=== PATIENT | male | born 1980 | race Caucasian/White ===

== ENCOUNTER 2017-08-09 19:54 | Emergency (ER) | payer MEDICAID, SELFPAY ==
[2017-08-09 19:55] VITALS: BP 156/85; PULSE 92; RESP 20; TEMP 36.7; O2SAT 100; BMI 25.0
--- NOTE | 2017-08-09 20:19 | ED.DCSUM_ITS ---
- ER Visit Summary Date of Service: 08/09/17 Chief Complaint: Plugged ears and chest congestion History of Present Illness: The patient is a 37 M with ear pressure and pain left more so than right over the past 6 days. He said chest congestion and is bringing up minimal sputum with cough. He reports subjective fevers. Past history of hepatitis C. Physical Examination: Vital signs are gross unremarkable. Head neck examination reveals posterior pharynx to be normal. Left TM is dull and erythematous. Right TM is normal. Heart is regular rate and rhythm. Lung sounds are clear. Abdomen is soft nontender. Test Results: [] Emergency Department Course and Treatment: Patient be treated with a course of Augmentin to cover his ear. I will not bother with a chest x-ray as this will cover respiratory bacterial illness as well. Treatment Plan: [] Disposition: Discharge Impression: Left otitis media This note was generated with [employer] dictation software. It may contain incorrect words, spelling, and punctuation that were not noted in review of the chart prior to signing ED Disposition - Plan for ED Patient: Chief Complaint: Cold Sx Referrals: Care Physician,No Primary [Primary Care Provider] -
--- NOTE | 2017-08-09 20:19 | ED.DEP ---
ED Disposition - Plan for ED Patient: Disposition: Home or Assisted Living Chief Complaint: Cold Sx Instructions: ED Otitis Media Acute Adult Prescriptions: Amox/Clavulanate Tablet [Augmentin Tablet] 875 mg PO Q12H #20 tablet Referrals: Henna Jimenez [NON-STAFF] - As soon as possible
[2017-08-09] MEDS: Amox/Clavulanate 875 MG Tablet PO (20:27)
== END 2017-08-09 20:28 | disposition home or self-care (01) ==
LOC: ED 20:24
PROVIDERS: Emergency Provider Emergency Medicine
DX: H66.92 Otitis media, unspecified, left ear (principal); Z72.0 Tobacco use; Z86.19 Personal history of other infectious and parasitic diseases
CPT/HCPCS: 99283

== ENCOUNTER 2017-08-23 20:13 | Emergency (ER) | payer MEDICAID, SELFPAY ==
[2017-08-23 20:15] VITALS: BP 135/89; PULSE 91; RESP 15; TEMP 36.6; O2SAT 99; BMI 26.1
--- NOTE | 2017-08-23 21:10 | RAD_ITS ---
STUDY: X-RAY CHEST REASON FOR EXAM: Male, 37 years old. Trauma 2 days ago TECHNIQUE: Single PA view of the chest. COMPARISON: Prior chest study of 03/25/2015 FINDINGS: The lungs are clear and expanded. There is mild bilateral apical pleural thickening. Normal size heart. Normal mediastinum and anders. Normal visualized pulmonary arteries. Normal visualized aortic arch and descending thoracic aorta. Normal visualized thoracic spine. Normal visualized ribs, clavicles, and shoulders. There is no demonstrated abnormality of the visualized soft tissue structures of the upper abdomen. IMPRESSION: Mild bilateral apical pleural thickening. No acute cardiopulmonary disease process is seen. Electronically Signed: Sukhdeep Ragland MD at 22:00 EST , Service support , STUDY: X-RAY - UNILATERAL RIBS ( RIGHT ) REASON FOR EXAM: Male, 37 years old. Trauma 2 days ago TECHNIQUE: 4 view(s) of the ribs. COMPARISON: None. FINDINGS: Normal visualized ribs without a demonstrated fracture. The visualized lung is clear and expanded. RAD/Ribs Uni Min 3V w/PA Chest IMPRESSION: Normal x-ray examination of the ribs. Electronically Signed: Sukhdeep Ragland MD at 22:03 EST , Service support ,
--- NOTE | 2017-08-23 22:14 | ED.VISSUMM ---
- ER Visit Summary Date of Service: 08/23/17 Chief Complaint: Rib pain History of Present Illness: The patient is a 37 M who states that 2 nights ago he was leaning over the console car when he slipped came down on the console in his right lower ribs. States he has had pain since that time. No hematuria. He denies any hemoptysis. No abdominal pain. No shortness of breath. Physical Examination: afebrile vital signs are stable Patient has tenderness to palpation over the right mid axillary ribs particularly 8 through 12. The abdominal exam is benign. There is no obvious deformity ecchymosis. Test Results: Hip series is negative for fracture effusion or contusion. Emergency Department Course and Treatment: To be discharged home with supportive care. Return if worsening follow-up if not improving Impression: 1. Right rib contusion This note was generated with [employer] dictation software. It may contain incorrect words, spelling, and punctuation that were not noted in review of the chart prior to signing ED Disposition - Plan for ED Patient: Disposition: Home or Assisted Living Chief Complaint: Other, Pain/Inj Instructions: ED Contusion Rib Referrals: Care Physician,No Primary [Primary Care Provider] - Dre Og MD [STAFF PHYSICIAN] - As Needed
[2017-08-23 22:22] VITALS: BP 155/84; PULSE 86; RESP 18; O2SAT 97
== END 2017-08-23 22:22 | disposition home or self-care (01) ==
PROVIDERS: Emergency Provider Emergency Medicine
DX: S20.211A Contusion of right front wall of thorax, initial encounter (principal); W01.198A Fall on same level from slipping, tripping and stumbling with subsequent striking against other object, initial encounter; Y93.9 Activity, unspecified; Y92.89 Other specified places as the place of occurrence of the external cause; Y99.9 Unspecified external cause status; Z72.0 Tobacco use; Z86.19 Personal history of other infectious and parasitic diseases
CPT/HCPCS: 71101; 99282

== ENCOUNTER 2017-12-30 20:19 | Emergency (ER) | payer MEDICAID, SELFPAY ==
[2017-12-30 20:19] VITALS: BP 124/80; PULSE 92; RESP 14; TEMP 36.8; O2SAT 99; BMI 24.5
--- NOTE | 2017-12-30 20:48 | ED.DCSUM_ITS ---
- ER Visit Summary Date of Service: 12/30/17 Chief Complaint: Right hand redness History of Present Illness: The patient is a 37 M presents to the emergency department with redness on the dorsum of his right hand. Symptoms started about 3 days ago. He cannot recall any trauma. He states that he noticed a small area of redness that is increased in size. He denies any fevers or chills. He states when the arm hangs, he does have more pain. He denies any IV drug abuse. The redness has not increased in size much. Physical Examination: Exam is relatively unremarkable. Patient does have a 2 cm area of induration on the dorsum of the right hand over the fourth metacarpal. There is no central fluctuance. There is no streaking. There is no lymphangitis. His pulses are normal. Test Results: [] Emergency Department Course and Treatment: Patient is cellulitis on the dorsum of his hand and a very small area. There is no focal abscess. At this time, I do not feel that incision and drainage would be of benefit without any central fluctuance. The patient will be started on Bactrim and Keflex. He did retirement plan counselor him that if his symptoms are not improving over the next 24 hours she should return for reevaluation. He is comfortable with this plan of care will be discharged home. Treatment Plan: [] Disposition: Discharge Impression: 1. Right hand cellulitis This note was generated with [employer] dictation software. It may contain incorrect words, spelling, and punctuation that were not noted in review of the chart prior to signing ED Disposition - Plan for ED Patient: Chief Complaint: Cellulitis Instructions: Discharge Instructions for Cellulitis Prescriptions: Cephalexin [Keflex] 500 mg PO Q6 #40 cap Smz/Tmp Ds [Bactrim Ds] 1 tab PO BID #14 tab Referrals: Care Physician,No Primary [Primary Care Provider] -
[2017-12-30] MEDS: Smz/Tmp Ds Tablet 1 TABLET PO (20:56)
[2017-12-30] MEDS: Cephalexin 250 MG Capsule 500 MG PO (20:56)
== END 2017-12-30 20:58 | disposition home or self-care (01) ==
LOC: ED 20:57
PROVIDERS: Emergency Provider Emergency Medicine
DX: L03.113 Cellulitis of right upper limb (principal)
CPT/HCPCS: 99283

== ENCOUNTER 2018-01-25 11:49 | Emergency (ER) | payer MEDICAID, SELFPAY ==
[2018-01-25 11:50] VITALS: BP 128/71; PULSE 112; RESP 16; TEMP 36.8; O2SAT 100; BMI 23.8
--- NOTE | 2018-01-25 12:26 | RAD_ITS ---
STUDY: X-RAY - left SHOULDER REASON FOR EXAM: Male, 37 years old. 3 week history of shoulder pain. No known injury. TECHNIQUE: 4 view(s) of the shoulder. COMPARISON: None. FINDINGS: Normal glenohumeral articulation. Normal acromioclavicular joint. Normal acromion. Normal humeral head and visualized proximal humerus. The soft tissue structures are unremarkable. Normal visualized pulmonary apex. RAD/Shoulder min 2 Views IMPRESSION: Normal x-ray examination of the shoulder. Electronically Signed: Ganesh Smith MD at 13:24 EDT Tel [phone], Service support ,
--- NOTE | 2018-01-25 14:17 | ED.DCSUM_ITS ---
- ER Visit Summary Date of Service: 01/25/18 Chief Complaint: Left shoulder pain History of Present Illness: The patient is a 37 M with neck, back, and left shoulder pain that started 3 weeks ago. Patient states his left shoulder pain continues. He feels pops and cracks with movement. States his paresthesias down his left arm as well. He is left-hand dominant. There is been no recent injury. Physical Examination: Vital signs remarkable for heart rate 112, otherwise unremarkable. Patient sitting upright in bed no acute distress. Head neck examination was no midline cervical tenderness. He does have tenderness in the left cervical paraspinals with palpable spasm. Heart is regular rate and rhythm. Lung sounds are clear. Abdomen is soft nontender. Left upper extremity examination was mild tenderness around the left shoulder. There is no deformity. He has full range of motion. Strong distal pulses are noted with good strength and sensation. Test Results: Left shoulder x-rays are obtained and unremarkable. Emergency Department Course and Treatment: Patient will continue his anti- inflammatories at home. He has been taking Flexeril, but states he has been on it for quite some time and is not sure that it is working. He will be given a few tabs of Valium to use as a muscle relaxer instead. Treatment Plan: [] Disposition: Discharge Impression: Cervical radiculopathy This note was generated with [employer] dictation software. It may contain incorrect words, spelling, and punctuation that were not noted in review of the chart prior to signing ED Disposition - Plan for ED Patient: Chief Complaint: Upper Extremity Injury Referrals: Care Physician,No Primary [Primary Care Provider] -
--- NOTE | 2018-01-25 14:17 | ED.DEP ---
ED Disposition - Plan for ED Patient: Disposition: Home or Assisted Living Chief Complaint: Upper Extremity Injury Instructions: ED Cervical Radiculopathy Prescriptions: Diazepam [Valium] 5 mg PO Q8 PRN #10 tablet PRN Reason: Muscle Spasm Referrals: Joni Johnson DO [STAFF PHYSICIAN] - As Needed
[2018-01-25 14:24] VITALS: BP 113/71; PULSE 81
== END 2018-01-25 14:26 | disposition home or self-care (01) ==
PROVIDERS: Emergency Provider Emergency Medicine
DX: M54.12 Radiculopathy, cervical region (principal); Z86.14 Personal history of Methicillin resistant Staphylococcus aureus infection; Z86.19 Personal history of other infectious and parasitic diseases; Z72.0 Tobacco use
CPT/HCPCS: 73030; 99282

== ENCOUNTER 2018-02-12 18:42 | Emergency (ER) | payer MEDICAID, SELFPAY ==
[2018-02-12 18:43] VITALS: BP 129/93; PULSE 112; RESP 18; TEMP 37.2; O2SAT 99; BMI 23.6
--- NOTE | 2018-02-12 19:41 | ED.VISSUMM ---
- ER Visit Summary Date of Service: 02/12/18 Chief Complaint: Abdominal pain History of Present Illness: The patient is a 37 M presenting with abdominal pain x 1 week. He has had nausea and vomiting. He denies diarrhea or constipation. Denies fever. He has pain in the right upper quadrant. History of hep C, pancreatitis. History of previous appendectomy and cholecystectomy. He does not currently have a primary care physician. 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 He denies alcohol use. Physical Examination: Vitals are stable. Patient is afebrile. Alert no acute distress. HEENT exam is unremarkable. Neck is supple. Lungs are clear and equal bilaterally. Heart is regular rate and rhythm. Abdomen is soft right upper quadrant tenderness with no rebound or guarding Extremities are unremarkable. Skin is warm and dry. Remainder of exam is unremarkable. Emergency Department Course and Treatment: Patient is given IV fluids, morphine, Zofran. CBC shows white count of 12.5. Chemistries unremarkable. Lipase 58. Urinalysis unremarkable. Patient refused CT abdomen pelvis. He is feeling improved on reevaluation. He will follow-up with his GI physician. He is given a prescription for Bentyl and Zofran. Advised return to ED for any worsening complaints. Disposition: Discharge home Impression: Abdominal pain This note was generated with [employer] dictation software. It may contain incorrect words, spelling, and punctuation that were not noted in review of the chart prior to signing ED Disposition - Plan for ED Patient: Chief Complaint: Abd Pain Instructions: ED Abdominal Pain Unkn Cause Prescriptions: Ondansetron [Zofran Odt] 4 mg PO Q8H PRN PRN #10 tablet PRN Reason: Nausea Dicyclomine HCl [Bentyl] 20 mg PO TIDAC #20 capsule Referrals: Care Physician,No Primary [Primary Care Provider] -
[2018-02-12 20:12] LABS: AST(SGOT) 13 U/L (15-37); Alanine Aminotransfer ALT/SGPT 24 U/L (16-61); Albumin, Serum 3.8 g/dL (3.2-5.0); Alkaline Phosphatase 98 U/L (45-117); Anion Gap 6 (5-15); BUN 10 mg/dL (7-18); BUN/Creat Ratio 9.4 RATIO (10-20); Bilirubin, Direct 0.11 mg/dL (0.00-0.30); Calcium,Total 8.8 mg/dL (8.5-10.1); Chloride 105 mmol/L (98-107); Creatinine, Serum 1.06 mg/dL (0.70-1.30); EST Glomerular Filtration Rate 83 mL/min (>60); Est Glom Filt Rate - Afr Amer 101 mL/min (>60); Estimated Creatinine Clearance 98.52 ml/min; Globulin 4.7 g/dL (2.2-4.2); Glucose 87 mg/dL (74-106); Lipase 58 U/L (73-393); Potassium 3.6 mmol/L (3.5-5.1); Protein, Total 8.5 g/dL (6.4-8.2); Sodium Level 139 mmol/L (136-145)
[2018-02-12 20:15] LABS: Absolute Lymphocyte Count 4.73 X10^3/ul (0.83-4.51); Absolute Neutrophil Count 6.5 X10^3/uL (2.0-7.7); Basophil# 0.03 X10^3/uL; Basophil% 0.2 % (0-1); Eosinophil# 0.29 X10^3/uL; Eosinophils% 2.3 % (0-5); Hematocrit 51.8 % (40-54); Hemoglobin 17.8 g/dl (13.0-16.5); Lymphocyte # 4.73 X10^3/ul (4.0); Lymphocyte % 37.8 % (19-41); Mean Corp Hgb Conc 34.4 g/gl (32-36); Mean Corpuscular Hgb 30.5 pg (27.0-32.0); Mean Corpuscular Volume 88.7 fL (80-94); Mean Platelet Vol. 9.8 fl (6.2-12.0); Monocyte# 0.98 X10^3/uL; Monocyte% 7.8 % (0-10); Neutrophil # 6.45 X10^3/uL (2.7-7.7); Neutrophil % 51.6 % (47-70); Platelet Count 201 K/mm3 (150-450); RBC Distribution Width CV 13.9 % (11.6-14.6); RBC Distribution Width SD 45.4 fl (35.1-43.9); Red Blood Count 5.84 M/mm3 (4.6-6.2); White Blood Count 12.5 K/mm3 (4.4-11.0)
[2018-02-12 20:17] LABS: POSITIVE COUNT NO; POSITIVE DIFFERENTIAL NO; POSITIVE MORPHOLOGY NO
[2018-02-12] MEDS: Ondansetron 4 MG/2 ML Vial IV (20:35)
[2018-02-12] MEDS: Morphine 4 MG/ML Syringe IV (20:35)
[2018-02-12] MEDS: 0.9% Normal Saline 1,000 ML 1000 ML IV (20:35)
[2018-02-12 20:37] LABS: Bacteria 0 SEEN /hpf (None Seen); Mucous, Urine 0 SEEN /hpf (<or=2+); Red Blood Cells-Urine 0 SEEN /hpf (0-5)
[2018-02-12 21:16] LABS: Color, Urine Yellow (Yellow); Glucose, Dipstick Normal (Normal); Ketone-Dipstick Negative (Negative); Leukocyte Esterase-Dipstick 100 /ul (Negative); Nitrite-Dipstick Negative (Negative); Occult Blood-Urine Negative /ul (Negative); Specific Gravity, Urine 1.015 (1.002-1.030); Urine Bilirubin Dipstick Negative (Negative); Urine Clarity Sl. Cloudy (Clear); Urine Urobilinogen Normal (Normal); Urine pH 6.5 (5.0 - 8.0)
[2018-02-12 21:28] LABS: Protein-Dipstick 15 mg/dl (Negative)
[2018-02-12 21:53] LABS: Squamous Epithelial Cells - UA 0-5 SEEN /hpf (0-5)
[2018-02-12 21:56] LABS: White Blood Cells 0-5 SEEN /hpf (0-5)
--- NOTE | 2018-02-12 22:08 | ED.DEP ---
ED Disposition - Plan for ED Patient: Chief Complaint: Abd Pain Instructions: ED Abdominal Pain Unkn Cause Prescriptions: Ondansetron [Zofran Odt] 4 mg PO Q8H PRN PRN #10 tablet PRN Reason: Nausea Dicyclomine HCl [Bentyl] 20 mg PO TIDAC #20 capsule Referrals: Care Physician,No Primary [Primary Care Provider] -
[2018-02-12 22:24] VITALS: RESP 16
== END 2018-02-12 22:25 | disposition home or self-care (01) ==
PROVIDERS: Emergency Provider Emergency Medicine
DX: R11.2 Nausea with vomiting, unspecified (principal); R10.11 Right upper quadrant pain; Z72.0 Tobacco use; Z86.19 Personal history of other infectious and parasitic diseases; Z90.49 Acquired absence of other specified parts of digestive tract
CPT/HCPCS: 80048; 80076; 81001; 83690; 85025; 99283; J7030; J2405

== ENCOUNTER 2018-04-30 14:13 | Emergency (ER) | payer MEDICAID, SELFPAY ==
[2018-04-30 14:14] VITALS: BP 162/106; PULSE 110; RESP 18; TEMP 36.4; O2SAT 100; BMI 24.3
--- NOTE | 2018-04-30 14:17 | RAD_ITS ---
STUDY: X-RAY CHEST REASON FOR EXAM: Male, 38 years old. Anterior chest pain. Midsternal swelling for 2 weeks. TECHNIQUE: PA and lateral views of the chest. COMPARISON: Comparison is made with prior examination dated March 25, 2015. FINDINGS: The lungs are clear and expanded. There is no demonstrated pleural abnormality. Normal size heart. Normal mediastinum and anders. Normal visualized pulmonary arteries. Normal visualized aortic arch and descending thoracic aorta. Normal visualized thoracic spine. Normal visualized ribs, clavicles, and shoulders. There is no demonstrated abnormality of the visualized soft tissue structures of the upper abdomen. RAD/Chest PA and Lateral IMPRESSION: Normal x-ray examination of the chest. Electronically Signed: Ganesh Smith MD at 14:54 EST Tel [phone], Service support ,
[2018-04-30 15:22] VITALS: BP 161/90; PULSE 107; RESP 20; O2SAT 99
--- NOTE | 2018-04-30 16:05 | ED.DCSUM_ITS ---
- ER Visit Summary Date of Service: 04/30/18 Chief Complaint: Swollen area on chest History of Present Illness: The patient is a 38 M who noted pain to his lower sternum area and around his right ribs were approximately 4 weeks ago. He initially does have pain when he laid on his right side. The area has become more sore over the past 4 weeks and he recently noted some swelling along the inferior sternum. The area is not red or warm. He has not noted fever or chills. Patient does have a history of MRSA and is exposed to someone who is currently being treated for MRSA. Physical Examination: Vital signs in triage include a blood pressure of 161/90 and a heart rate of 107. The time of my examination his blood pressure is 126/88. Patient sitting upright in bed no acute distress. Head and neck examination is unremarkable. Heart is regular rate and rhythm. Lung sounds are clear. He has reproducible tenderness along the inferior sternum with some mild edema noted. There is no redness or warmth. There is no actual fluctuance. Abdomen is soft nontender. Test Results: [] Emergency Department Course and Treatment: I did do a bedside ultrasound exam does not show a focal fluid collection. I am suspicious for developing abscess and patient be treated with Bactrim and Keflex. He was advised that if the area enlarges or he has overlying skin changes he may require I&D and he is to return if that occurs. He understands. Treatment Plan: [] Disposition: Discharge Impression: Cutaneous abscess Chest wall This note was generated with [employer] dictation software. It may contain incorrect words, spelling, and punctuation that were not noted in review of the chart prior to signing ED Disposition - Plan for ED Patient: Chief Complaint: Chest Other Referrals: Care Physician,No Primary [Primary Care Provider] -
--- NOTE | 2018-04-30 16:05 | ED.DEP ---
ED Disposition - Plan for ED Patient: Disposition: Home or Assisted Living Chief Complaint: Chest Other Instructions: ED Staph Infec Abx Tx Only Prescriptions: Cephalexin [Keflex] 500 mg PO Q6 #40 capsule Smz/Tmp Ds [Bactrim Ds] 1 tablet PO BID #20 tablet Referrals: Margarito Arora MD [NON-STAFF] - 1 Week
[2018-04-30] MEDS: Cephalexin 250 MG Capsule 500 MG PO (16:16)
[2018-04-30] MEDS: Smz/Tmp Ds Tablet 1 TABLET PO (16:16)
[2018-04-30 16:17] VITALS: BP 126/88; PULSE 97; RESP 18; O2SAT 98
== END 2018-04-30 16:18 | disposition home or self-care (01) ==
LOC: ED 16:10
PROVIDERS: Emergency Provider Emergency Medicine
DX: L02.213 Cutaneous abscess of chest wall (principal); Z86.14 Personal history of Methicillin resistant Staphylococcus aureus infection; Z72.0 Tobacco use; Z86.19 Personal history of other infectious and parasitic diseases
CPT/HCPCS: 71046; 99283

== ENCOUNTER → 2018-07-17 10:01 | Outpatient (CLI) | payer MEDICAID, SELFPAY ==
[2018-07-17 10:30] LABS: Amphetamine Urine VISTA NEGATIVE (<1000 ng/mL); Barbiturate Urine VISTA NEGATIVE (< 200 ng/mL); Benzodiazepine Urine VISTA NEGATIVE (< 200 ng/mL); Cocaine Urine VISTA NEGATIVE (< 300 ng/mL); Ecstacy Urine VISTA NEGATIVE (< 500 ng/mL); Methadone Urine VISTA NEGATIVE (< 300 ng/mL); PCP Urine VISTA NEGATIVE (< 25 ng/mL); THC Urine VISTA NEGATIVE (< 50 ng/mL); Vista UDS pH Range 5
--- OUTSIDE RECORDS SUMMARY | 2018-09-18 12:29 | XMS RPT_ITS ---
:1980 Author Organization OHIP Support Name Relationship Address Phone CAMMY RODRIGUEZ Unavailable Unavailable + HEIDE MARIE Unavailable [address] + [place] [address] UE Unavailable Unavailable Unavailable HEIDE MARIE Unavailable [address] + [place] [address] UE Unavailable Unavailable Unavailable NOT GIVEN Unavailable Unavailable Unavailable HEIDE MARIE Unavailable [address] + [place], [place] [phone] PEPE PISENGA Unavailable [address] + [place] [address] HEIDE MARIE Unavailable [address] + [place] [address] [employer] Unavailable [address] + [place] [address] HEIDE MARIE Unavailable [address] + [place] [address] [employer] Unavailable [address] + [place] [address] HEIDE MARIE Unavailable [address] + [place] [address] CYNTHIA HEIDE Unavailable [address] + [place] [address] [employer] Unavailable [address] + [place] [address] CYNTHIA, HEIDE Unavailable [address] + [place] [address] [employer] Unavailable [address] + [place] [address] HEIDE MARIE Unavailable [address] + [place] [address] HEIDE MARIE Unavailable [address] + [place] [address] NOT GIVEN Unavailable Unavailable Unavailable HEIDE MARIE Unavailable [address] + [place], [place] [id number] [employer] Unavailable [address] + [place] [address] HEIDE MARIE Unavailable [address] + [place] [address] [employer] Unavailable [address] + [place] [address] DOE MARIELEY Unavailable [address] + [place] [address] DOE MARIELEY Unavailable [address] + [place] [address] [employer] Unavailable [address] + [place] [address] HEIDE MARIE Unavailable [address] + [place] [address] [employer] Unavailable [address] + [place] [address] DOE MARIELEY Unavailable [address] + [place] [address] CYNTHIA, HEIDE Unavailable [address] + [place] [address] Care Team Providers Name Role Phone TORITO CHA V Admitting Unavailable STEFF BINGHAM Admitting Unavailable STEFF BINGHAM Attending Unavailable TORITO CHA Admitting Unavailable TORITO CHA Attending Unavailable TORITO CHA Admitting Unavailable TORITO CHA Attending Unavailable TORITO GÓMEZ Consulting Unavailable TORITO CHA Admitting Unavailable TORITO CHA Attending Unavailable TORITO CHA Admitting Unavailable TORITO CHA Attending Unavailable JOSE CRAVEN DO Admitting Unavailable JOSE CRAVEN DO Attending Unavailable JOSE CRAVEN DO Primary Care Unavailable NO, DOCTOR ON Consulting Unavailable NO, DOCTOR ON Referring Unavailable VENESSA, DR MARY Rogers Admitting Unavailable VENESSA, DR MARY Rogers Attending Unavailable VENESSA, DR MARY Rogers Primary Care Unavailable NO, DOCTOR ON Consulting Unavailable TAEGE, LONI Referring Unavailable DEEPA, LONI Referring Unavailable JESICA SANDERS Attending Unavailable TORITO KNUTSON Primary Care Unavailable CONNIE LUKE Attending Unavailable TORITO KNUTSON Primary Care Unavailable CONNIE LUKE Attending Unavailable TORITO KNUTSON Primary Care Unavailable TORITO KNUTSON Primary Care Unavailable REGAN SETH Attending Unavailable Blossom Johnson Attending Unavailable Blossom Johnson Referring Unavailable ABRAHAN DAVIS Primary Care Unavailable Primay Care Physicia, No Primary Care Unavailable Bhargavi Morgan Attending Unavailable Primay Care Physicia, No Primary Care Unavailable Bhargavi Morgan Attending Unavailable Primay Care Physicia, No Primary Care Unavailable Bhargavi Morgan Attending Unavailable Primay Care Physicia, No Primary Care Unavailable Joni David Attending Unavailable Primay Care Physicia, No Primary Care Unavailable Rush Elizalde Attending Unavailable Primay Care Physicia, No Primary Care Unavailable Elana Celaya Attending Unavailable PROBLEMS PROBLEMS DATE TYPE CONDITION / CODE ATTENDING STATUS SOURCE 07/17/2018 Unknown F11.20 - Opioid Blossom Johnson Active [place] dependence, Community uncomplicated / Hospital F11.20(ICD-10) Repository 01/06/2018 Working PAIN IN RIGHT HIP / VAISHNAV, Active [place] diagnosis M25.551(ICD-10) [facility] Repository 10/11/2016 Active Nonspecific reaction NA Active [place] to tuberculin skin Clinic Main test without active [place] tuberculosis / Repository R76.11(ICD-10) 10/11/2016 Active Chronic viral NA Active [place] hepatitis C / Clinic Main B18.2(ICD-10) [place] Repository 09/23/2017 Active Other specified NA Active [place] effects of external Clinic Main causes, initial [place] encounter / Repository T75.89XA(ICD-10) 09/23/2017 Active Contact with and NA Active [place] (suspected) exposure Clinic Main to unspecified [place] communicable disease Repository / Z20.9(ICD-10) 01/06/2018 Working PLEURODYNIA / VAISHNAV, Active [place] diagnosis R07.81(ICD-10) [facility] Hospital Repository 01/06/2018 Working CONTUSION OF RIGHT VAISHNAV, Active [place] diagnosis FRONT WALL OF [facility] THORAX, INITIAL Hospital ENCOUNTER / Repository S20.211A(ICD-10) 01/06/2018 Working CONTUSION OF VAISHNAV, Active [place] diagnosis ABDOMINAL WALL, [facility] INITIAL ENCOUNTER / Hospital S30.1XXA(ICD-10) Repository 01/06/2018 Working ALLERGY STATUS TO VAISHNAV, Active [place] diagnosis UNSP DRUG/MEDS/BIOL [facility] SUBST STATUS / Hospital Z88.9(ICD-10) Repository 01/06/2018 Working EXPOSURE TO OTHER VAISHNAV, Active [place] diagnosis SPECIFIED FACTORS, [facility] INITIAL ENCOUNTER / Hospital X58.XXXA(ICD-10) Repository 01/06/2018 Working ACTIVITY, OTHER VAISHNAV, Active [place] diagnosis SPECIFIED / [facility] Y93.89(ICD-10) Hospital Repository 01/06/2018 Working OTH PLACES THE VAISHNAV, Active [place] diagnosis PLACE OF OCCURRENCE [facility] OF THE EXTERNAL Hospital CAUSE / Repository Y92.89(ICD-10) 01/06/2018 Working OTHER EXTERNAL CAUSE VAISHNAV, Active [place] diagnosis STATUS / [facility] Y99.8(ICD-10) Hospital Repository 01/10/2018 Unknown R09.89 - Other Morgan, Active [place] specified symptoms Bhargavi Community and signs involving Hospital the circulatory and Repository respiratory systems / R09.89(ICD-10) 01/16/2018 Working OTALGIA, BILATERAL / SANDERS, Active [place] diagnosis H92.03(ICD-10) [facility] Repository 01/16/2018 Working UNSPECIFIED TOMMY, Active [place] diagnosis NONSUPPURATIVE [facility] OTITIS MEDIA, Hospital BILATERAL / Repository H65.93(ICD-10) 01/16/2018 Working ACUTE SINUSITIS, SANDERS, Active [place] diagnosis UNSPECIFIED / [facility] J01.90(ICD-10) Hospital Repository 01/16/2018 Working ANXIETY DISORDER, SANDERS, Active [place] diagnosis UNSPECIFIED / [facility] F41.9(ICD-10) Hospital Repository 01/16/2018 Working MAJOR DEPRESSIVE SANDERS, Active [place] diagnosis DISORDER, SINGLE [facility] EPISODE, UNSPECIFIED Hospital / F32.9(ICD-10) Repository 01/16/2018 Working NICOTINE DEPENDENCE, SANDERS, Active [place] diagnosis CIGARETTES, [facility] UNCOMPLICATED / Hospital F17.210(ICD-10) Repository 01/16/2018 Working OTHER SPECIFIED SANDERS, Active [place] diagnosis POSTPROCEDURAL [facility] / Hospital Z98.890(ICD-10) Repository 01/16/2018 Working ACQUIRED ABSENCE OF SANDERS, Active [place] diagnosis OTHER SPECIFIED [facility] PARTS OF DIGESTIVE Hospital TRACT / Repository Z90.49(ICD-10) 01/16/2018 Working OTHER NONMEDICINAL SANDERS, Active [place] diagnosis SUBSTANCE ALLERGY [facility] STATUS / Hospital Z91.048(ICD-10) Repository 01/16/2018 Working ALLERGY STATUS TO SANDERS, Active [place] diagnosis ANALGESIC AGENT [facility] / Hospital Z88.6(ICD-10) Repository 01/16/2018 Working ALLERGY STATUS TO SANDERS, Active [place] diagnosis NARCOTIC AGENT [facility] / Hospital Z88.5(ICD-10) Repository 01/16/2018 Working ALLERGY STATUS TO SANDERS, Active [place] diagnosis OTH DRUG/MEDS/BIOL [facility] STATUS / Hospital Z88.8(ICD-10) Repository PROCEDURES PROCEDURES No Procedure Records FoundRESULTS RESULTS URINE DRUG SCREEN Collected: 07/17/2018 Status: F Source: [place] (VISTA) 10:10 AM [facility] REPOSITORY Order Comment: List of Drugs Taken or Suspected? UNK TYPE CODE TESTS RESULT OUT OF RANGE REFERENCE UNITS LAB L505.0075 TO BE Normal CONFIRMED Result Comment: CONFIRMATORY TESTING FOR ALL POSITIVE URINE DRUG SCREEN RESULTS WILL ONLY BE SENT OUT UPON PHYSICIAN ORDER. VISTA Urine Drug Screen methods provide only preliminary analytical test results. A more specific alternate chemical method must be used in order to obtain a confirmed analytical result. Gas chromatography/mass spectrometery (GC/MS) is the preferred confirmatory method. Clinical consideration and professional judgement should be applied to any drug of abuse test result, particularly when preliminary positive results are used. URINE TCA TESTING MUST BE ORDERED SEPARATELY. USE TEST MNEMONIC: [facility] LAB L505.5005 VISTA UDS PH 5 Normal LAB L505.5015 <1000 ng/mL AMPHETAMINES Normal NEGATIVE LAB L505.5025 < 200 ng/mL BARBITIURATES Normal NEGATIVE LAB L505.5035 < 200 ng/mL BENZODIAZIPINE Normal NEGATIVE LAB L505.5045 < 300 ng/mL COCAINE Normal NEGATIVE LAB L505.5055 < 500 ng/mL ECSTACY Normal NEGATIVE LAB L505.5065 < 300 ng/mL METHADONE Normal NEGATIVE LAB L505.5075 < 300 ng/mL OPIATES Normal NEGATIVE LAB L505.5085 < 25 ng/mL PCP Normal NEGATIVE LAB L505.5095 < 50 ng/mL THC Normal NEGATIVE Performed By: #### L505.5000 #### [facility] [place], [address] [facility] Observed: 05/23/2018 Status: COMPLETED Source: [place] 12:00 AM [facility] REPOSITORY Patient Outreach (INFDMN) MARY LOU ELIZONDO JR. ([id number]) 1980 M Date Time Provider Department 05/23/18 LAURA WHITAKER (YESY SPENCE)INFDMN During your visit today, we recorded the following information about you: Allergies As of Date: 05/23/2018 Noted Allergy Reaction ADHESIVE TAPE (ROSINS) 04/11/2008 2 - Rash AMANTADINE 03/02/2005 5 - Intolerance Comments: FATIGUE AND G.I. UPSET CODEINE 11/28/2014 9 - Itching TORADOL (KETOROLAC TROMETHAMINE) 07/14/2014 2 - Rash ULTRAM (TRAMADOL) 07/14/2014 2 - Rash Date Reviewed: 05/08/2017 Reviewed by: Iraida Paige Ma - Fully Assessed Reason for Visit: Future Appointment [256] Prescriptions as of 05/23/2018 Sig: TRUVADA 200 MG-300 MG TABLET TAKE 1 TABLET BY MOUTH EVERY * OXYCODONE 5 MG TABLET Take 5 mg by mouth. 1 -2 tabs* IBUPROFEN 200 MG TABLET Take 200 mg by mouth every 6 * ISONIAZID 300 MG TABLET Take 1 tablet by mouth once d* Problem List As Of Date 05/23/2018 Noted Resolved ADJUSTMENT DISORDER WITH DEPRESSED MOOD [F43.21]INVALID FOR* ANXIETY STATE NOS [F41.1] INVALID FOR* OTHER LUNG DISEASE NEC [J98.4] INVALID FOR* PNEUMONIA, ORGANISM NOS [J18.9] INVALID FOR* FX NAVICULAR, WRIST-CLOSE [S62.009A] INVALID FOR* LUMBAGO [M54.5] INVALID FOR* CONVULSIONS NEC [R56.9] INVALID FOR* ALCOHOL ABUSE-UNSPEC [F10.10] INVALID FOR* TOBACCO USE DISORDER [F17.200] INVALID FOR* MGRN WO AURA WO NTRC MGR [G43.009] INVALID FOR* Calculus of kidney [N20.0] INVALID FOR* Right flank pain [R10.9] INVALID FOR* Left flank pain [R10.9] INVALID FOR* Lumbar disc disorder [M51.9] INVALID FOR* Chronic hepatitis C without hepatic coma (HCC) *INVALID FOR* 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] INVALID FOR* Encounter Status:Closed by LAURA ARREGUIN on 05/23/18 EMERGENCY DEPARTMENT Observed: 05/01/2018 Status: F Source: [place] SUMMARY 2:17 AM [facility] REPOSITORY [facility] Medical Records Department [address] [place] [address] Emergency Department Summary 04/30/18 1600 MR#: [id number] Acct: [id number] Name: MARY LOU ELIZONDO Rep #: [id number] : 1980 38 From: Bhargavi Morgan MD PCP: Care Physician, No Primary Status: DEP ER - ER Visit Summary Date of Service: 04/30/18 Chief Complaint: Swollen area on chest History of Present Illness: The patient is a 38 M who noted pain to his lower sternum area and around his right ribs were approximately 4 weeks ago. He initially does have pain when he laid on his right side. The area has become more sore over the past 4 weeks and he recently noted some swelling along the inferior sternum. The area is not red or warm. He has not noted fever or chills. Patient does have a history of MRSA and is exposed to someone who is currently being treated for MRSA. Physical Examination: Vital signs in triage include a blood pressure of 161/90 and a heart rate of 107. The time of my examination his blood pressure is 126/88. Patient sitting upright in bed no acute distress. Head and neck examination is unremarkable. Heart is regular rate and rhythm. Lung sounds are clear. He has reproducible tenderness along the inferior sternum with some mild edema noted. There is no redness or warmth. There is no actual fluctuance. Abdomen is soft nontender. Test Results: [] Emergency Department Course and Treatment: I did do a bedside ultrasound exam does not show a focal fluid collection. I am suspicious for developing abscess and patient be treated with Bactrim and Keflex. He was advised that if the area enlarges or he has overlying skin changes he may require I AND D and he is to return if that occurs. He understands. Treatment Plan: [] Disposition: Discharge Impression: Cutaneous abscess Chest wall This note was generated with Examify dictation software. It may contain incorrect words, spelling, and punctuation that were not noted in review of the chart prior to signing ED Disposition - Plan for ED Patient: Chief Complaint: Chest Other Referrals: Care Physician,No Primary [Primary Care Provider] - What to do if you have Problems For any increased pain, shortness of breath, bleeding, nausea or vomiting, chest pain, or any unexpected problems, contact your Primary Care Provider. Call [facility] ([phone]) or report to the closest Emergency Room. Call 911 if necessary. 05/01/18 0217 <Electronically signed by Bhargavi Morgan MD> Date Bhargavi Morgan MD Cosigner Signature (If Indicated): Date CC: No Primary Care Physician DISCHARGE INSTRUCTION Observed: 04/30/2018 Status: F Source: [place] 4:07 PM [facility] REPOSITORY [facility] Medical Records Department [address] [place] [address] Discharge Instruction 04/30/185 MR#: [id number] Acct: [id number] Name: MARY LOU ELIZONDO Rep #: [id number] : 1980 38 From: Bhargavi Morgan MD PCP: Care Physician, No Primary Status: PRE ER ED Disposition - Plan for ED Patient: Disposition: Home or Assisted Living Chief Complaint: Chest Other Instructions: ED Staph Infec Abx Tx Only Prescriptions: Cephalexin [Keflex] 500 mg PO Q6 #40 capsule Smz/Tmp Ds [Bactrim Ds] 1 tablet PO BID #20 tablet Referrals: Margarito Arora MD [NON-STAFF] - 1 Week What to do if you have Problems For any increased pain, shortness of breath, bleeding, nausea or vomiting, chest pain, or any unexpected problems, contact your Primary Care Provider. Call [facility] ([phone]) or report to the closest Emergency Room. Call 911 if necessary. 04/30/181606 <Electronically signed by Bhargavi Morgan MD> Date Bhargavi Morgan MD Cosigner Signature (If Indicated): Date CC: No Primary Care Physician CHEST PA AND LATERAL Observed: 04/30/2018 Status: F Source: [place] 2:18 PM [facility] REPOSITORY [facility] Imaging Services [address] [place] [address] Chest PA and Lateral MR#: [id number] Acct: [id number] Name: MARY LOU ELIZONDO Rep #: [id number] : 1980 M 38 From: Ganesh Smith MD PCP: Care Physician, No Primary Status: PRE ER Study: Chest PA and Lateral Date of Exam: 04/30/18 Exam# [id number] Ordering Dr: Provider,Ed P. STUDY: X-RAY CHEST REASON FOR EXAM: Male, 38 years old. Anterior chest pain. Midsternal swelling for 2 weeks. TECHNIQUE: PA and lateral views of the chest. COMPARISON: Comparison is made with prior examination dated March 25, 2015. FINDINGS: The lungs are clear and expanded. There is no demonstrated pleural abnormality. Normal size heart. Normal mediastinum and anders. Normal visualized pulmonary arteries. Normal visualized aortic arch and descending thoracic aorta. Normal visualized thoracic spine. Normal visualized ribs, clavicles, and shoulders. There is no demonstrated abnormality of the visualized soft tissue structures of the upper abdomen. RAD/Chest PA and Lateral IMPRESSION: Normal x-ray examination of the chest. Electronically Signed: Ganesh Smith MD at 14:54 EST Tel [phone], Service support , CC: No Primary Care Physician; ED PHYSICIAN PROVIDER Pallet Assembler: Signed CHEST 2 VIEWS Observed: 04/27/2018 Status: F [facility] [place] [address] Patient: MARY LOU ELIZONDO JR Phone#: : 1980 Age: 38 Gender: M Pt. Type: ER Account: [id number] Location: 2 Ordering: MARY CLIFFORD Exam Date: 04/27/2018/13:44 Family Phys: NO DOCTOR Charge Code: [id number] Physician: [place] Order #: [id number] DLP Dose#: PROCEDURE: X-RAY CHEST 2 VIEWS COMPARISON: [facility], XR, CHEST PA/LAT, 02/20/2016, 15:54. INDICATIONS: Chest pain FINDINGS: LUNGS: Normal. No significant pulmonary parenchymal abnormalities. VASCULATURE: Normal. Unremarkable pulmonary vasculature. CARDIAC: Normal. No cardiac silhouette abnormality or cardiomegaly. MEDIASTINUM: Normal. No visible mass or adenopathy. PLEURA: Normal. No effusion or pleural thickening. BONES: Normal. No fracture or visible bony lesion. OTHER: Negative. CONCLUSION: No acute disease. No significant change has occurred. Dictated by: Ginger Lara MD on 04/27/2018 at 14:30 Approved by: Ginger Lara MD on 04/27/2018 at 14:30 EMERGENCY REPORT Observed: 04/27/2018 Status: F Source: [facility] 1:21 PM [facility] EMERGENCY ROOM REPORT NAME ACCOUNT SEX AGE ADMIT DISCHARGE PT MED. RECORD# NUMBER DATE DATE TYPE MIKHAIL, [id number] M 38 04/27/18 3 MARY LOU Mar[place] [id number] ROOM: ER DATE OF : 1980 DICTATING PHYSICIAN: Mary Clifford HISTORY OF PRESENT ILLNESS: The patient came in. He complained of pain to his right lower chest area, which radiates around to his back. He denies any shortness of breath. He has had it for 3 weeks. It is just giving him pain. He was concerned and presents to the emergency department. PAST MEDICAL HISTORY: He has had wrist surgery. He has history of colitis, pancreatitis. MEDICATIONS: He is on HIV prophylaxis he states. REVIEW OF SYSTEMS: Eight systems were reviewed and are negative except as mentioned above. He is afebrile. Blood pressure 133/94, pulse 96, respirations 16. Head is normocephalic and atraumatic. Pupils are equally round and reactive to light. Extraocular muscles are intact. Nares are patent. Throat has adequate moisture. Uvula is midline. Neck is supple without petechial rash. Heart without murmur, S1, S2. No S3 or S4 appreciated. Lungs are clear to auscultation bilaterally. No rales, rhonchi or retractions. Abdomen is soft, nontender and nondistended. Skin is warm and dry. The patient does not have tenderness to palpation. PHYSICAL EXAMINATION: Chest x-ray was unremarkable. EKG showed rate of 92, normal axis. No ST elevation or depression. DIAGNOSIS: Chest pain, cause not clear. Not cardiac. PLAN/DISPOSITION: He will be discharged in stable condition. He should follow up with Kerline Cortés in 3 to 4 days and return if any problems or concerns. We will write him for Motrin for pain. Dictated By: Mary Clifford DO 04/27/18 14:45 JOB #: [id number] Transcribed By: jae 04/27/18 15:39 Electronically signed by: HANNAH Clifford D.O. Page 1 of 2 MARY LOU ELIZONDO Emergency Room Report JR L 05/10/18 08:54 Page 2 of 2 MARY LOU ELIZONDO Emergency Room Report L URINALYSIS Collected: 04/03/2018 Status: F Source: [place] 8:58 AM [facility] REPOSITORY TYPE CODE TESTS RESULT OUT OF RANGE REFERENCE UNITS LAB UCOL Yellow Color Yellow LAB [facility] Clear Clarity Clear LAB UGLUC Negative mg/dL Glucose, Urine Negative LAB UBIL Negative Bilirubin, Urine Negative LAB UKET Negative Ketones, Urine Negative LAB USPG 1.005-1.030 High Specific [place], Ur 1.034 LAB UHGB Negative Hemoglobin/Blood, Negative Ur LAB UPH 4.5-8.0 pH 5.0 LAB UPROT Negative mg/dL Protein, Abnormal Urine 30 Alert LAB UUROB Normal Urobilinogen Normal LAB UNITR Negative Nitrites Negative LAB ULKEST Negative Leukest Negative LAB UCOM Comments SEE COMMENT Result Comment: Microscopic Examination Performed LAB UWBC 0-5 /HPF WBC 0-5 LAB URBC 0-3 /HPF RBC 0-3 LAB UMCOM Urine SEE Derek Comment COMMENT Result Comment: Interpret results with caution. Urine preservative tube not filled to the required volume. The BD Vacutainer Urinalysis preservative Plus tube must be filled with at least 7 mL and not more than 9 mL of urine in order to maintain the proper additive to urine ratio. LAB UCRYS 0 /HPF Abnormal Alert Crystals SEE COMMENT Result Comment: Few Uric Acid Crystals Performed By: #### UA, UGCCT #### [facility] [address] [place], [place] [address] GC/CHLAMYDIA AMP, UR Collected: 04/03/2018 Status: F Source: [place] 8:58 AM [facility] REPOSITORY TYPE CODE TESTS RESULT OUT OF REFERENCE UNITS RANGE LAB UGCAMP GC Negative Amplification, for Neisseria Ur gonorrhoeae by amplification. LAB UCLAMP Negative Chlamydia for Chlamydia Amplif, Ur trachomatis by amplification. Performed By: #### UA, UGCCT #### [facility] [address] [place], [place] [address] BASIC METABOLIC PANL Collected: 04/03/2018 Status: F Source: [place] 8:58 AM [facility] REPOSITORY TYPE CODE TESTS RESULT OUT OF REFERENCE UNITS RANGE LAB GLU 74-99 mg/dL Glucose 84 Result Comment: The [place] [employer] (ADA) provides guidance for cutoff values for fasting glucose and random glucose. The ADA defines fasting as no caloric intake for at least 8 hours. Fas ting plasma glucose results between 100 to 125 mg/dL indicate increased risk for diabetes (prediabetes). Fasting plasma glucose results greater than or equal to 126 mg/dL meet the criteria for diagnosis of diabetes. In the absence of unequivocal hyperglycemia, results should be confirmed by repeat testing. In a patient with classic symptoms of hyperglycemia or hyperglycemic crisis, random plasma glucose results greater than or equal to 200 mg/dL meet the criteria for diagnosis of diabetes. Reference: Standards of Medical Care in Diabetes 2016, [place] [employer]. Diabetes Care. 2016.39(Suppl 1). LAB BUN 9-24 mg/dL BUN 10 LAB CRET 0.73-1.22 mg/dL Creatinine 0.95 LAB NA 136-144 mmol/L Sodium 140 LAB K 3.7-5.1 mmol/L Potassium 4.1 LAB CL 97-105 mmol/L Chloride 104 LAB CO2 22-30 mmol/L CO2 25 LAB AGAP 9-18 mmol/L Anion Gap 11 LAB CA 8.5-10.2 mg/dL Calcium, Total 9.8 LAB GFRAA eGFR- Amer. >60 LAB GFRNAA . eGFR-All Other Races >60 Result Comment: eGFR (Estimated GFR) Units of measure: mL/min/1.73 meters squared eGFR is derived from the reexpressed MDRD Study equation using the following parameters: serum creatinine, age, gender and race. The creatinine assay has been calibrated to be traceable to IDMS. An eGFR <60 mL/min/1.73m2 for >3 months is consistent with chronic kidney disease. Refer to KDOQI guidelines for clinical interpretation. In patients with unstable renal function, e.g. those with acute kidney injury, the eGFR may not accurately reflect actual GFR. Performed By: #### BMP, PHOS, HREMOP, HIV12C, HCQPCR #### [facility] [address] [place] [address] PHOSPHORUS Collected: 04/03/2018 Status: F Source: [place] 8:58 AM [facility] REPOSITORY TYPE CODE TESTS RESULT OUT OF REFERENCE UNITS RANGE LAB PHOS 2.7-4.8 mg/dL Low Phosphorus 1.5 Performed By: #### BMP, PHOS, HREMOP, HIV12C, HCQPCR #### [place] [address] HEPATITIS REMOTE PANEL Collected: 04/03/2018 Status: F Source: [place] 8:58 AM [facility] REPOSITORY TYPE CODE TESTS RESULT OUT OF RANGE REFERENCE UNITS LAB AHBCOT Negative Hep B Core Negative Ab,Total LAB AHCV Negative Abnormal Hepatitis C Ab Positive Alert IA Result Comment: Confirmation with Hepatitis C RNA has been ordered and charged. LAB HBSAGR Negative HBsAg Negative LAB AHBSAG Negative Abnormal Alert HepB Surface Positive Ab,Qual Result Comment: These results are consistent with previous exposure and/or immunity to the hepatitis B virus antigen. Performed By: #### BMP, PHOS, HREMOP, HIV12C, HCQPCR #### [place] [address] [place] [address] HIV 12 COMBO (AG/AB) Collected: 04/03/2018 Status: F Source: [place] 8:58 [facility] REPOSITORY TYPE CODE TESTS RESULT OUT OF REFERENCE UNITS RANGE LAB HVAGAB Non Reactive HIV Non Reactive 12 Ag/Ab Result Comment: (NOTE) HIV Information: [place] Rev. Code 3701.243(E): This information has been disclosed to you from confidential records protected from disclosure by state law. You shall make no further disclosure of this information without the specific, written, and informed release of the individual to whom it pertains, or as otherwise permitted by state law. A general authorization for the release of medical or other information is not sufficient for the purpose of the release of HIV test results or diagnoses. Performed By: #### BMP, PHOS, HREMOP, HIV12C, HCQPCR #### [facility] [employer] [address] [place], [place] [address] HEPATITIS C RNA Collected: 04/03/2018 Status: F Source: [place] 8:58 AM [facility] [place] REPOSITORY TYPE CODE TESTS RESULT OUT OF RANGE REFERENCE UNITS LAB HCQPCR IU/mL Abnormal Hepatitis C HCV RNA is Alert RNA detected by PCR, less than 15 IU/mL HCV RNA. Result Comment: INTERPRETATION: Positive for HCV RNA by PCR. The Linear Range of this assay is 15 IU/mL to 100,000,000 IU/mL. Reference Range: Negative for HCV RNA Performed By: #### BMP, PHOS, HREMOP, HIV12C, HCQPCR #### [facility] [employer] [address] [place], [place] [address] DISCHARGE INSTRUCTION Observed: 02/12/2018 Status: F Source: [place] 10:09 PM [facility] REPOSITORY [facility] Medical Records Department [address] [place] [address] Discharge Instruction 02/12/182207 MR#: [id number] Acct: [id number] Name: MARY LOU ELIZONDO Rep #: [id number] : 1980 37 From: Elana Celaya MD PCP: Care Physician, No Primary Status: REG ER ED Disposition - Plan for ED Patient: Chief Complaint: Abd Pain Instructions: ED Abdominal Pain Unkn Cause Prescriptions: Ondansetron [Zofran Odt] 4 mg PO Q8H PRN PRN #10 tablet PRN Reason: Nausea Dicyclomine HCl [Bentyl] 20 mg PO TIDAC #20 capsule Referrals: Care Physician,No Primary [Primary Care Provider] - What to do if you have Problems For any increased pain, shortness of breath, bleeding, nausea or vomiting, chest pain, or any unexpected problems, contact your Primary Care Provider. Call [facility] ([phone]) or report to the closest Emergency Room. Call 911 if necessary. 02/12/18 2209 <Electronically signed by Elana Celaya MD> Date Elana Celaya MD Cosigner Signature (If Indicated): Date CC: No Primary Care Physician EMERGENCY DEPARTMENT Observed: 02/12/2018 Status: F Source: [place] SUMMARY 10:09 PM [facility] REPOSITORY [facility] Medical Records Department [address] [place] [address] Emergency Department Summary 02/12/181940 MR#: [id number] Acct: [id number] Name: MARY LOU ELIZONDO Rep #: [id number] : 1980 37 From: Elana Celaya MD PCP: Care Physician, No Primary Status: REG ER - ER Visit Summary Date of Service: 02/12/18 Chief Complaint: Abdominal pain History of Present Illness: The patient is a 37 M presenting with abdominal pain x 1 week. He has had nausea and vomiting. He denies diarrhea or constipation. Denies fever. He has pain in the right upper quadrant. History of hep C, pancreatitis. History of previous appendectomy and cholecystectomy. He does not currently have a primary care physician. 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 He denies alcohol use. Physical Examination: Vitals are stable. Patient is afebrile. Alert no acute distress. HEENT exam is unremarkable. Neck is supple. Lungs are clear and equal bilaterally. Heart is regular rate and rhythm. Abdomen is soft right upper quadrant tenderness with no rebound or guarding Extremities are unremarkable. Skin is warm and dry. Remainder of exam is unremarkable. Emergency Department Course and Treatment: Patient is given IV fluids, morphine, Zofran. CBC shows white count of 12.5. Chemistries unremarkable. Lipase 58. Urinalysis unremarkable. Patient refused CT abdomen pelvis. He is feeling improved on reevaluation. He will follow-up with his GI physician. He is given a prescription for Bentyl and Zofran. Advised return to ED for any worsening complaints. Disposition: Discharge home Impression: Abdominal pain This note was generated with Examify dictation software. It may contain incorrect words, spelling, and punctuation that were not noted in review of the chart prior to signing ED Disposition - Plan for ED Patient: Chief Complaint: Abd Pain Instructions: ED Abdominal Pain Unkn Cause Prescriptions: Ondansetron [Zofran Odt] 4 mg PO Q8H PRN PRN #10 tablet PRN Reason: Nausea Dicyclomine HCl [Bentyl] 20 mg PO TIDAC #20 capsule Referrals: Care Physician,No Primary [Primary Care Provider] - What to do if you have Problems For any increased pain, shortness of breath, bleeding, nausea or vomiting, chest pain, or any unexpected problems, contact your Primary Care Provider. Call [facility] ([phone]) or report to the closest Emergency Room. Call 911 if necessary. 02/12/182208 <Electronically signed by Elana Celaya MD> Date Elana Celaya MD Cosigner Signature (If Indicated): Date CC: No Primary Care Physician URINALYSIS, COMPLETE Collected: 02/12/2018 Status: F Source: [place] 9:19 PM [facility] REPOSITORY Order Comment: How was Urine Obtained? CLEAN CATCH TYPE CODE TESTS RESULT OUT OF RANGE REFERENCE UNITS LAB L400.3000 Yellow COLOR Normal Yellow LAB L400.3050 Clear Normal CLARITY Sl. Cloudy LAB L400.3200 Normal mg/dl Normal GLUCOSE, UR Normal LAB L400.3300 Negative mg/dL Normal BILIRUBIN URINE Negative LAB L400.3400 Negative mg/dl Normal KETONE UR Negative LAB L400.3465 1.002-1.030 Normal SP.GR. DIPSTX 1.015 LAB L400.3550 5.0 - 8.0 pH UR Normal 6.5 LAB L400.3600 Negative mg/dl High PROT 15 DIPSTX LAB L400.3700 Normal mg/dl Normal UROBILI Normal LAB L400.3750 Negative Normal NITRITE UR Negative LAB L400.3780 Negative /ul Normal OCCULT BLOOD-UR Negative LAB L400.3800 Negative /ul High LEUK ESTERASE 100 LAB L400.4050 0-5 /hpf WBC Normal 0-5 SEEN LAB L400.4100 0-5 /hpf 0 Normal RBC-UA SEEN LAB L400.4150 0-5 /hpf SQUAM Normal EPI 0-5 SEEN LAB L400.4300 None Seen /hpf 0 Normal BACTERIA SEEN LAB L400.4350 <or=2+ /hpf 0 Normal MUCUS, URINE SEEN Performed By: #### L400.0001 #### [facility] [address] [place], [address] BASIC METABOLIC Collected: 02/12/2018 Status: F Source: [place] PROFILE (BMP) 7:50 PM [facility] REPOSITORY TYPE CODE TESTS RESULT OUT OF RANGE REFERENCE UNITS LAB L501.0100 74-106 mg/dL Normal GLU 87 Result Comment: Please note revised GLUCOSE reference range effective 2017. LAB L501.1000 7-18 mg/dL Normal BUN 10 LAB L501.1100 0.70-1.30 mg/dL Normal CREAT,SERUM 1.06 Result Comment: The validity of the calculated GFR AND GFRAA in patients over 70 years has not been determined. Clinical correlation is essential. LAB L501.1110 >60 mL/min Normal EST GFR 83 Result Comment: Non- GFR Calc LAB L501.1115 >60 mL/min Normal EST GFR - AA 101 Result Comment: GFR Calc LAB L501.1255 ml/min Normal Estimated CRCL 98.52 LAB L501.1300 10-20 RATIO Low BUN/CRE 9.4 LAB L501.2200 8.5-10 mg/dL Normal .1 CA 8.8 LAB L501.5300 136-14 mmol/L Normal 5 NA 139 LAB L501.5600 3.5-5. mmol/L Normal 1 K 3.6 LAB L501.5900 98-107 mmol/L Normal CL 105 LAB L501.6100 21.0-3 mmol/L Normal 2.0 CO2 28.0 LAB L501.6200 5-15 Normal GAP 6 Performed By: #### L500.2500, L500.3400, L501.2450 #### [facility] [address] [place], [address] LIVER PROFILE Collected: 02/12/2018 Status: F Source: [place] 7:50 PM [facility] REPOSITORY TYPE CODE TESTS RESULT OUT OF RANGE REFERENCE UNITS LAB L501.1500 6.4-8.2 g/dL High T PROT 8.5 LAB L501.1800 3.2-5.0 g/dL Normal ALB 3.8 LAB L501.1950 2.2-4.2 g/dL High GLOB 4.7 LAB L501.4100 15-37 U/L Low AST 13 LAB L501.4305 45-117 U/L Normal ALK P 98 LAB L501.4405 16-61 U/L Normal ALT 24 LAB L501.4600 0.20-1.00 mg/dL Normal T BILI 0.50 LAB L501.4700 0.00-0.30 mg/dL Normal D BILI 0.11 Performed By: #### L500.2500, L500.3400, L501.2450 #### [facility] [address] [place], [address] LIPASE Collected: 02/12/2018 Status: F Source: [place] 7:50 PM [facility] REPOSITORY TYPE CODE TESTS RESULT OUT OF REFERENCE UNITS RANGE LAB L501.2450 73-393 U/L Low LIPASE 58 Performed By: #### L500.2500, L500.3400, L501.2450 #### [facility] [address] [place], [address] CBC W/DIFF, AUTOMATED Collected: 02/12/2018 Status: F Source: [place] 7:50 PM [facility] REPOSITORY TYPE CODE TESTS RESULT OUT OF RANGE REFERENCE UNITS LAB L100.1000 4.4-11.0 K/mm3 High WBC 12.5 LAB L100.1200 4.6-6.2 M/mm3 Normal RBC 5.84 LAB L100.1300 13.0-16.5 g/dl High HGB 17.8 LAB L100.1400 40-54 % Normal HCT 51.8 LAB L100.1500 80-94 fL Normal MCV 88.7 LAB L100.1600 27.0-32.0 pg Normal MCH 30.5 LAB L100.1700 32-36 g/gl Normal MCHC 34.4 LAB L100.1810 11.6-14.6 % Normal RDW CV 13.9 LAB L100.1820 35.1-43.9 fl High RDW SD 45.4 LAB L100.1900 150-450 K/mm3 Normal PLT 201 LAB L100.2000 6.2-12.0 fl Normal MPV 9.8 LAB L100.2100 47-70 % Normal NEUT% 51.6 LAB L100.2200 19-41 % Normal LY% 37.8 LAB L100.2300 0-10 % Normal MONO% 7.8 LAB L100.2400 0-5 % Normal EO% 2.3 LAB L100.2500 0-1 % Normal BASO% 0.2 LAB L100.2550 0.0-0.9 % Normal IM GRAN % 0.300 Result Comment: IG% - Immature Granulocytes (promyelocytes, myelocytes and metamyelocytes) > 1% indicates that a LEFT SHIFT is Present. LAB L100.2620 2.0-7.7 X10 3/uL Normal Absolute Neut 6.5 LAB L100.2720 0.83-4.51 X10 3/ul High Absolute Lymph 4.73 Performed By: #### L100.0100 #### [facility] [address] [facility] [place], [address] EMERGENCY DEPARTMENT Observed: 01/25/2018 Status: F Source: [place] SUMMARY 4:29 PM [facility] REPOSITORY [facility] Medical Records Department [address] [place] [address] Emergency Department Summary 01/25/18 1416 MR#: [id number] Acct: [id number] Name: MARY LOU ELIZONDO Rep #: [id number] : 1980 37 From: Bhargavi Morgan MD PCP: Care Physician, No Primary Status: DEP ER - ER Visit Summary Date of Service: 01/25/18 Chief Complaint: Left shoulder pain History of Present Illness: The patient is a 37 M with neck, back, and left shoulder pain that started 3 weeks ago. Patient states his left shoulder pain continues. He feels pops and cracks with movement. States his paresthesias down his left arm as well. He is left-hand dominant. There is been no recent injury. Physical Examination: Vital signs remarkable for heart rate 112, otherwise unremarkable. Patient sitting upright in bed no acute distress. Head neck examination was no midline cervical tenderness. He does have tenderness in the left cervical paraspinals with palpable spasm. Heart is regular rate and rhythm. Lung sounds are clear. Abdomen is soft nontender. Left upper extremity examination was mild tenderness around the left shoulder. There is no deformity. He has full range of motion. Strong distal pulses are noted with good strength and sensation. Test Results: Left shoulder x-rays are obtained and unremarkable. Emergency Department Course and Treatment: Patient will continue his anti-inflammatories at home. He has been taking Flexeril, but states he has been on it for quite some time and is not sure that it is working. He will be given a few tabs of Valium to use as a muscle relaxer instead. Treatment Plan: [] Disposition: Discharge Impression: Cervical radiculopathy This note was generated with Examify dictation software. It may contain incorrect words, spelling, and punctuation that were not noted in review of the chart prior to signing ED Disposition - Plan for ED Patient: Chief Complaint: Upper Extremity Injury Referrals: Care Physician,No Primary [Primary Care Provider] - What to do if you have Problems For any increased pain, shortness of breath, bleeding, nausea or vomiting, chest pain, or any unexpected problems, contact your Primary Care Provider. Call [facility] ([phone]) or report to the closest Emergency Room. Call 911 if necessary. 01/25/18 5141 <Electronically signed by Bhargavi Morgan MD> Date Bhargavi Morgan MD Cosigner Signature (If Indicated): Date CC: No Primary Care Physician DISCHARGE INSTRUCTION Observed: 01/25/2018 Status: F Source: [place] 2:19 PM [facility] REPOSITORY [facility] Medical Records Department [address] [place] [address] Discharge Instruction 01/25/18 1417 MR#: [id number] Acct: [id number] Name: MARY LOU ELIZONDO Rep #: [id number] : 1980 37 From: Bhargavi Morgan MD PCP: Care Physician, No Primary Status: REG ER ED Disposition - Plan for ED Patient: Disposition: Home or Assisted Living Chief Complaint: Upper Extremity Injury Instructions: ED Cervical Radiculopathy Prescriptions: Diazepam [Valium] 5 mg PO Q8 PRN #10 tablet PRN Reason: Muscle Spasm Referrals: Joni Johnson, [STAFF PHYSICIAN] - As Needed What to do if you have Problems For any increased pain, shortness of breath, bleeding, nausea or vomiting, chest pain, or any unexpected problems, contact your Primary Care Provider. Call [facility] ([phone]) or report to the closest Emergency Room. Call 911 if necessary. 01/25/18 141 <Electronically signed by Bhargavi Morgan MD> Date Bhargavi Morgan MD Cosigner Signature (If Indicated): Date CC: No Primary Care Physician SHOULDER MIN 2 VIEWS Observed: 01/25/2018 Status: F Source: [place] 12:26 PM [facility] REPOSITORY [facility] Imaging Services [address] [place] [address] Shoulder min 2 Views MR#: [id number] Acct: [id number] Name: MARY LOU ELIZONDO Rep #: [id number] : 1980 M 37 From: Ganesh Smith MD PCP: Care Physician, No Primary Status: REG ER Study: Shoulder min 2 Views Date of Exam: 01/25/18 Exam# [id number] Ordering Dr: Bhargavi Morgan MD STUDY: X-RAY - left SHOULDER REASON FOR EXAM: Male, 37 years old. 3 week history of shoulder pain. No known injury. TECHNIQUE: 4 view(s) of the shoulder. COMPARISON: None. FINDINGS: Normal glenohumeral articulation. Normal acromioclavicular joint. Normal acromion. Normal humeral head and visualized proximal humerus. The soft tissue structures are unremarkable. Normal visualized pulmonary apex. RAD/Shoulder min 2 Views IMPRESSION: Normal x-ray examination of the shoulder. Electronically Signed: Ganesh Smith MD at 13:24 EDT Tel [phone], Service support , CC: No Primary Care Physician; Bhargavi Morgan MD Pallet Assembler: Signed EMERGENCY DEPARTMENT Observed: 01/07/2018 Status: F Source: [place] 7:[address] [place] [address] HEALTH INFORMATION MANAGEMENT EMERGENCY DEPARTMENT : [id number] Signed Patient: MARY LOU ELIZONDO Acct:[id number] MRUN: [id number] : 1980 Sex: M Loc: ED ADM Date: 01/06/18 Room/Bed: DISC Date: 01/06/18 History of Present Illness - General Chief Complaint: Pain Stated Complaint: HEADACHE PAIN LT SHOULDER Symptom onset: 01/03/18 HPI: pt states lt shoulder pain started about 3 days ago and yesterday he started with a headache. states is unable to turn his head to the left without increased pain and feels a pulling sensation when he tries to lift his lt arm. a 37-year-old male presents with right neck pain and right shoulder pain for past 3 days. Left-sided neck pain that radiates all the way to his left head. Limited range of motion of the left shoulder because of this stretching and muscle stiffness.. Level . They'll throbbing pain which is intermittent and comes in waves. Pain gets worse with lifting motions of the left shoulder. Pain gets better with rest. Patient has tried heat, ibuprofen with minimal to no therapeutic results. Patient denies any injuries, falls. Patient denies any numbness or tingling to bilateral upper extremities. denies nausea, vomiting, vision changes Time Seen by Provider: 01/06/18 18:01 Mode of Transport: Ambulatory - Related Data Home Medications Medication Instructions Recorded Confirmed Emtricitabine/Tenofovir (Tdf) 1 tab PO DAILY 08/22/17 01/06/18 [Truvada 200 mg-300 mg Tablet] Allergies Allergy/AdvReac Type Severity Reaction Status Date / Time adhesive Allergy BREAKS OUT Verified 01/06/18 17:53 IN RASH amantadine Allergy Verified 01/06/18 17:53 ketorolac tromethamine Allergy RASH Verified 01/06/18 17:53 [From Toradol] tramadol Allergy RASH Verified 01/06/18 17:53 codeine AdvReac Skin Rash Verified 01/06/18 17:53 - Hives Review of System - Constitutional Constitutional: Present: Well developed, Well nourished, Non-toxic - Nose,Throat,Mouth Nose (ROS): Absent: pain Throat: Absent: pain, swelling, discharge Mouth: Absent: pain, swelling - Respiratory Respiratory: Absent: cough, short of breath, wheezing - CV Cardiology: Absent: chest pain, edema - GI Gastrointestinal/Abdominal: Absent: abdominal pain, diarrhea, nausea, vomiting - Genitourinary Symptoms: Absent: dysuria - Neuro Neurological: Absent: headache, weakness - Muskuloskeletal Musculoskeletal: Present: muscle pain, muscle stiffness, neck pain. Absent: back pain, joint pain - Integumentary Skin: Absent: lesions, rash - Allergic/Immunologic Immunological/Allergic: Present: no symptoms reported - Hematologic Hematologic/Lymphatic: Absent: easy bleeding, easy bruising, swollen glands - Endocrine Endocrine: Present: no symptoms reported - Psychiatric Psychiatric: Present: Normal Affect, Normal Mood. 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 Cholecystectomy - Genitourinary Hx Genitourinary Disorders: Yes PMH--Genitourinary: Hematuria (Blood), Kidney Stones - Musculoskeletal Hx Musculoskeletal Disorders: Yes PMH--Musculoskeletal: Fracture Other MS PMH: HX ABCESS TO L ARM AND L FACE; pinched nerve to left lower back - Reproductive OB Related Complications: None - Psychological Hx Psychosocial Problems: Yes PMH--Psychological Treatments: Anxiety, Depression - HEENT Hx Ear, Nose Throat Disorders: Yes PMH--Ears Nose and Throat: Farsighted, Nearsighted Past Surgical Hx-ENT: Dental Surgery Other HEENT PSH: LEFT LAZY EYE SURGERY CORRECTION - Cancer Hx Cancer: No - Immunizations Hx Tetanus, Diphtheria Vaccination: No Hx Influenza Vaccination: Yes Hx Pneumococcal Vaccination: No - Other Other PMH: MRSA - Social History Highest Educational Level: High School Able to Read: Yes Able to Write: Yes Smoking Status: Heavy Smoker (>10 cig/day) Packs Per Day Reported: 0.5 Hx Chewing Tobacco Use: No Alcohol Use: Never Any recreational drug use reported?: No Hx Substance Use Treatment: No Feels Threatened In Home Environment: No Feels Threatened In a Relationship: No Hx Physical Abuse: No Hx Emotional Abuse: No Hx Suspected Abuse: No - Family PMH Mother Living Status: Still Living Cardiac: Cardiac Disorder(s) - [place]/Gender ID What is your current Gender Identity? Choose all that Apply: Male - Suicide/Homicide Screen Past 2 weeks, Have you felt down, depressed or hopeless?: No Past 2 Wks, Have you had thoughts killing yourself or others: No In your lifetime, have you attempt kill yourself or others?: No In your lifetime, When did this Happen?: Not Applicable General Exam - General Limitations: Complains of: no limitations Constitutional: Present: Well developed, Well nourished, well hydrated, Non-toxic - Head Head exam: Present: atraumatic, normocephalic, normal inspection - Eye Eye exam: Present: normal apperance, normal accomodation, EOMI Pupils: Present: PERRL - ENT ENT exam: Present: normal orophraynx, mucous membranes moist, TMs clear w/ good light reflex, normal external ear exam, No Nasal Discharge, Posterior Pharynx Non-erethemetous - Expanded ENT Exam Ear exam: Present: normal external inspection Mouth exam: Present: normal external inspection Teeth exam: Present: normal inspection Throat exam: normal inspection - Neck Neck exam: Present: tenderness (Limited range of motion of the neck, especially on the left side compared to the right side. Left-sided shoulder seems tense, trapezius muscles appaers stiff and rigid to palpation. Visible muscle deformity seen on the left sided neck muscles versus right side. left side necka dn shoulder are tender to touch. no swelling or erythema), Posterior Lymphadenopathy. Absent: meningismus, Anterior Lymphadenopathy - Respiratory Respiratory exam: Present: lungs clear equal bilaterally. Absent: respiratory distress, wheezes, rales, rhonchi, accessory muscle use - Cardiovascular Cardiovascular Exam: Present: regular rate, normal rhythm, normal heart sounds. Absent: murmur, rubs, gallop, clicks - GI/Abdominal GI/Abdominal exam: Present: soft, non tender, normal bowel sounds. Absent: guarding, rebound, rigid , mass, bruit - Extremities Exam Extremities exam: Present: normal inspection, full ROM, neurovascularly intact - Back Exam Back exam: Present: normal inspection, full ROM. Absent: tenderness - Neurological Exam Neurological exam: Present: alert, oriented X3, CN II-XII intact - Expanded Neurological Exam Patient oriented to: Present: person, place, time Speech: Present: fluid speech - Psychiatric Psychiatric exam: Present: normal affect, normal mood - Skin Skin Color: Present: Normal, [place] Skin exam: Present: warm, dry - Expanded Skin Exam Type of lesion: Absent: rash - Vital Signs Vital Signs 01/06/18 17:33 Temperature 98.0 F Pulse Rate [ 79 Pulse Ox] Respiratory 16 Rate Blood Pressure 131/90 [Right Arm] O2 Sat by Pulse 99 Oximetry(%) Course - Reevaluation(s) Reevaluation #1: patient has neck muscle spasms. The intermittent nature of pain indicates muscle spasms which comes and goes. Patient to continue rest, heat and ice, alternate every. Patient to continue stretching exercises, especially after the heating treatment is applied to improve the laxity of the muscles. We'll prescribe muscle relaxers for next 10 days. patient educated on side effects of muscle relaxers and causing extra drowsiness. Patient not to operate heavy machinery or driving while on it. Patient is started out by taking the one muscle relaxer only at bedtime and then slowly increase it to 3 times a day. Follow-up with primary care physician for further imaging and tests. follow-up with primary care in 3-5 days 01/06/18 18:05 01/06/18 18:09 ED Discharge Summary - Discharge Data Clinical Impression: Neck muscle spasm Condition: Good Disposition: 01 HOME, SELF-CARE Admit is Medically Necessary, Anticipated Stay >2 Midnights:: No Referrals: TORITO KNUTSON [Primary Care Provider] - Additional Instructions: Return to this facility if you are not improving as expected. BACK UP PHYSICIAN: YOU HAVE BEEN GIVEN THE NAME OF A PHYSICAN THAT IS ON-CALL FOR PATIENTS THAT DO NOT HAVE A LOCAL PHYSICIAN..... PLEASE FOLLOW-UP INDICATED. LET THE OFFICE KNOW YOU WERE GIVEN THE PHYSICIAN NAME AND PHONE NUMBER TO FOLLOW UP A BACK UP PATIENT Home Medications: Ambulatory Orders Medication Instructions Recorded Emtricitabine/Tenofovir (Tdf) 1 tab PO DAILY 08/22/17 [Truvada 200 mg-300 mg Tablet] Time Seen by Provider: 01/06/18 18:01 Electronically Generated By: REGAN SETH CNP Generated Date/Time: 01/06/181800 Electronically Signed By: REGAN SETH CNP Signed Date/Time 01/06/181809 Co Signed Electronically By: <Electronically signed by CONNIE LUKE MD> <Electronically signed by CONNIE LUKE MD> Co Signed Date/Time: 01/07/1873701/07/18737 CC: TORITO KNUTSON EMERGENCY DEPARTMENT Observed: 12/30/2017 Status: F Source: [place] SUMMARY 9:21 PM [facility] REPOSITORY [facility] Medical Records Department [address] [place] [address] Emergency Department Summary 12/30/172045 MR#: [id number] Acct: [id number] Name: MARY LOU ELIZONDO Rep #: [id number] : 1980 37 From: Joni David MD PCP: Care Physician, No Primary Status: DEP ER - ER Visit Summary Date of Service: 12/30/17 Chief Complaint: Right hand redness History of Present Illness: The patient is a 37 M presents to the emergency department with redness on the dorsum of his right hand. Symptoms started about 3 days ago. He cannot recall any trauma. He states that he noticed a small area of redness that is increased in size. He denies any fevers or chills. He states when the arm hangs, he does have more pain. He denies any IV drug abuse. The redness has not increased in size much. Physical Examination: Exam is relatively unremarkable. Patient does have a 2 cm area of induration on the dorsum of the right hand over the fourth metacarpal. There is no central fluctuance. There is no streaking. There is no lymphangitis. His pulses are normal. Test Results: [] Emergency Department Course and Treatment: Patient is cellulitis on the dorsum of his hand and a very small area. There is no focal abscess. At this time, I do not feel that incision and drainage would be of benefit without any central fluctuance. The patient will be started on Bactrim and Keflex. He did queen's counsel him that if his symptoms are not improving over the next 24 hours she should return for reevaluation. He is comfortable with this plan of care will be discharged home. Treatment Plan: [] Disposition: Discharge Impression: 1. Right hand cellulitis This note was generated with Examify dictation software. It may contain incorrect words, spelling, and punctuation that were not noted in review of the chart prior to signing ED Disposition - Plan for ED Patient: Chief Complaint: Cellulitis Instructions: Discharge Instructions for Cellulitis Prescriptions: Cephalexin [Keflex] 500 mg PO Q6 #40 cap Smz/Tmp Ds [Bactrim Ds] 1 tab PO BID #14 tab Referrals: Care Physician,No Primary [Primary Care Provider] - What to do if you have Problems For any increased pain, shortness of breath, bleeding, nausea or vomiting, chest pain, or any unexpected problems, contact your Primary Care Provider. Call [facility] ([phone]) or report to the closest Emergency Room. Call 911 if necessary. 12/30/172120 <Electronically signed by Joni David MD> Date Joni David MD Cosigner Signature (If Indicated): Date CC: No Primary Care Physician EMERGENCY DEPARTMENT Observed: 11/15/2017 Status: F Source: [facility] [address] [place] [address] HEALTH INFORMATION MANAGEMENT EMERGENCY DEPARTMENT : [id number] Signed Patient: MARY LOU ELIZONDO Acct:[id number] MRUN: [id number] : 1980 Sex: M Loc: ED ADM Date: 11/15/17 Room/Bed: DISC Date: History of Present Illness - General Chief Complaint: Pain Stated Complaint: RIGHT HIP PAIN GOING DOWN LEG Symptom onset: 11/14/17 approx 1800 HPI: 37-year-old male complaining of pain in the right hip radiating to the right lower extremity since yesterday. He had sciatica symptoms on the left side in the past and feels similar currently. Pain is dull and worse with movement. patient denies any injury or fall. No swelling of extremities. No fever. No penile bleeding or discharge. No saddle anesthesia. No testicular or scrotal pain. No trouble with bowel or bladder function. Denies any travelling history/sick contacts/recent use of antibiotics. No cough/congestion/fever/chills/rash. No blood in stool/ vomitus or urine. NO LOC/Dizziness/Syncope. No VALLADARES, neck pain, CP, dyspnea or abd pain. No speech/ vision problems. No numbness, tingling or paresthesias. No unilateral weakness in face or extremities. Time Seen by Provider: 11/15/17 16:25 Mode of Transport: Ambulatory - Related Data Home Medications Medication Instructions Recorded Confirmed Emtricitabine/Tenofovir (Tdf) 1 tab PO DAILY 08/22/17 11/15/17 [Truvada 200 mg-300 mg Tablet] Allergies Allergy/AdvReac Type Severity Reaction Status Date / Time adhesive Allergy BREAKS OUT Verified 11/15/17 16:50 IN RASH amantadine Allergy Verified 11/15/17 16:50 ketorolac tromethamine Allergy RASH Verified 11/15/17 16:50 [From Toradol] tramadol Allergy RASH Verified 11/15/17 16:50 codeine AdvReac Skin Rash Verified 11/15/17 16:50 - Hives Review of System - Constitutional Constitutional: Present: Well developed, Well nourished, Non- toxic. Absent: chills, diaphoresis, fever, malaise, weakness, Lethargic - Nose,Throat,Mouth Nose (ROS): Present: no symptoms reported. Absent: pain Throat: Present: no symptoms reported. Absent: pain, swelling, discharge Mouth: Present: no symptoms reported. Absent: pain, swelling - Respiratory Respiratory: Present: no symptoms reported. Absent: cough, short of breath, wheezing - CV Cardiology: Present: no symptoms reported. Absent: chest pain, edema - GI Gastrointestinal/Abdominal: Present: no symptoms reported. Absent: abdominal pain, diarrhea, nausea , vomiting - Genitourinary Symptoms: Present: no symptoms reported. Absent: dysuria - Neuro Neurological: Present: no symptoms reported. Absent: headache, numbness, paresthesia, pre-existing deficit, seizure, tingling, tremors, weakness, saddle anesthesia - Muskuloskeletal Musculoskeletal: Present: joint pain (Right hip pain). Absent: back pain, joint swelling, neck pain - Integumentary Skin: Absent: lesions, rash - Allergic/Immunologic Immunological/Allergic: Present: no symptoms reported - Hematologic Hematologic/Lymphatic: Absent: easy bleeding, easy bruising, swollen glands - Endocrine Endocrine: Present: no symptoms reported - Psychiatric Psychiatric: Present: Normal Affect, Normal Mood. 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; pinced nerve to left lower back - Reproductive OB Related Complications: None - Psychological Hx Psychosocial Problems: No PMH--Psychological Treatments: Anxiety, Depression - HEENT Hx Ear, Nose Throat Disorders: Yes PMH--Ears Nose and Throat: Farsighted, Nearsighted Past Surgical Hx-ENT: Dental Surgery Other HEENT PSH: LEFT LAZY EYE SURGERY CORRECTION - Cancer Hx Cancer: No - Communicable Diseases PMH--Communicable Diseases: None - Immunizations Hx Tetanus, Diphtheria Vaccination: No Hx Influenza Vaccination: Yes Hx Pneumococcal Vaccination: No - Other Other PMH: MRSA - Social History Highest Educational Level: High School Able to Read: Yes Able to Write: Yes Smoking Status: Heavy Smoker (>10 cig/day) Smoked in Last year: Yes Hx Chewing Tobacco Use: No Alcohol Use: Never Any recreational drug use reported?: No Hx Substance Use Treatment: No Feels Threatened In Home Environment: No Feels Threatened In a Relationship: No Hx Physical Abuse: No Hx Emotional Abuse: No Hx Suspected Abuse: No - Family PMH Mother Living Status: Still Living Cardiac: Cardiac Disorder(s) - Suicide/Homicide Screen Past 2 weeks, Have you felt down, depressed or hopeless?: No Past 2 Wks, Have you had thoughts killing yourself or others: No In your lifetime, have you attempt kill yourself or others?: No In your lifetime, When did this Happen?: Not Applicable General Exam - General Limitations: Complains of: no limitations Constitutional: Present: Well developed, Well nourished, well hydrated, Non-toxic. Absent: chills, diaphoresis, fever, malaise, weakness, Lethargic - Head Head exam: Present: atraumatic, normocephalic, normal inspection - Eye Eye exam: Present: normal apperance, normal accomodation, EOMI Pupils: Present: PERRL - ENT ENT exam: Present: normal orophraynx, mucous membranes moist, TMs clear w/ good light reflex, normal external ear exam, No Nasal Discharge, Posterior Pharynx Non-erethemetous - Expanded ENT Exam Ear exam: Present: normal external inspection Mouth exam: Present: normal external inspection Teeth exam: Present: normal inspection Throat exam: normal inspection - Neck Neck exam: Present: full ROM, Supple. Absent: tenderness, meningismus, Posterior Lymphadenopathy, Anterior Lymphadenopathy - Respiratory Respiratory exam: Present: lungs clear equal bilaterally. Absent: respiratory distress, wheezes, rales, rhonchi, stridor, accessory muscle use, Nasal Flaring - Cardiovascular Cardiovascular Exam: Present: regular rate, normal rhythm, normal heart sounds. Absent: murmur, rubs, gallop, clicks - GI/Abdominal GI/Abdominal exam: Present: soft, non tender, normal bowel sounds, equal femoral pulses. Absent: guarding, rebound, rigid, mass, bruit, pulsatile mass, hernia, tenderness - Male Exam exam: Present: normal inspection, other (no inguinal hernia or lymphadenopathy. No testicular or scrotal redness or swelling or tenderness) - Extremities Exam Extremities exam: Present: normal inspection, neurovascularly intact, full ROM, normal muscle strength, normal/equal pulses, tenderness (right gluteal area. nno redness or swelling or ecchymosis or deformity or bruising noted. No extremity shortening.). Absent: calf tenderness, pedal edema - Back Exam Back exam: Present: normal inspection, full ROM. Absent: tenderness, vertebral tenderness, rash noted, cervical tenderness, thoracic tenderness, lumbar tenderness - Expanded Back Exam Back exam: Absent: saddle anesthesia, loss of bowel or bladder Back exam: Positive Straight Leg Raise: Right, Negative Straight Leg Raising: Left - Neurological Exam Neurological exam: Present: alert, oriented X3, CN II-XII intact - Expanded Neurological Exam Patient oriented to: Present: person, place, time Speech: Present: fluid speech - Psychiatric Psychiatric exam: Present: normal affect, normal mood - Skin Skin Color: Present: Normal, [place] Skin exam: Present: warm, dry - Expanded Skin Exam Type of lesion: Absent: rash - Vital Signs Vital Signs 11/15/17 16:14 Temperature 98.5 F Pulse Rate [ 100 Pulse Ox] Respiratory 18 Rate Blood Pressure 134/91 H [Left Arm] O2 Sat by Pulse 98 Oximetry(%) Course - Reevaluation(s) Reevaluation #1: 11/15/17 18:04 x-ray unremarkable Patient self driving.. Hence, I cannot give him anything for acute pain in the emergency room. He states understanding of the same No back pain or saddle anesthesia. No trouble with bowel or bladder function. No abdominal pain. No testicular or scrotal pain. No unilateral weakness in face or extremities noted. No VALLADARES, neck pain, CP, dyspnea or abd pain. No speech/vision problems. No numbness, tingling or paresthesias. No unilateral weakness in face or extremities. Patient is tolerating PO well, ambulating well. Patient appears well hydrated, nontoxic V.S are stable. Patient is hemodynamically stable. NV intact. Speech and grasp are intact, normal gait. No Vision problems. Nonacute/nonsurgical abdomen Exam, Negative Meningeal signs. Patient appears stable for discharge and outpatient follow up. Warning signs discussed with patient to return back to ER if any worsening of symptoms. Patient states understanding of need for f/up and agrees with management and plan. Lower extremity MDM - Lab Data Orders: Labs 11/15/17 16:42 RIGHT HIP 2V [DIAG] Stat - Radiology Data Radiology Report: Radiology report reviewed,see report for findings Radiology Impressions Hip X-Ray 11/15/17 16:42 IMPRESSION: No acute bone or soft tissue findings. No gross arthropathy at the right hip. Follow-up CT or MR imaging if continued symptomatology or clinical suspicion. - Differential Diagnosis Differential Diagnosis: contusion/sprain/fracture/sciatica ED Discharge Summary - Discharge Data Clinical Impression: Right hip pain Condition: Good Disposition: 01 HOME, SELF-CARE Referrals: TORITO KNTUSON [Primary Care Provider] - Additional Instructions: Return to ER if symptoms worse/any other problems. Call and f/up with YOUR DOCTOR in 2-3 days for reevaluation of current symptoms/findings, if not better FOR FURTHER testing including MRI testing. Call your Doctor tomorrow and schedule follow-up appointment. Home Medications: Ambulatory Orders Medication Instructions Recorded Emtricitabine/Tenofovir (Tdf) 1 tab PO DAILY 08/22/17 [Truvada 200 mg-300 mg Tablet] Home medications and allergies reviewed: Yes Time Seen by Provider: 11/15/17 16:25 - Consultation Nurses Notes Reviewed and Agreed With?: Yes - Dictation Amendments/Documentation: [employer] Document Only Attestation: You have been given a medicine in the ED which may cause drowsiness, per our policy, you must have a dedicated driver take you home DO NOT DRIVE OR OPERATE DANGEROUS MACHINERY while taking medicine prescribed for you today ! At least one of your blood pressure readings in the Emergency Department visit today were above 120 /80. You need to follow up with your Primary Care Physician/Family Doctor within the next week about your blood pressure. Electronically Generated By: CONNIE LUKE MD Generated Date/Time: 11/15/17 1724 Electronically Signed By: CONNIE LUKE MD Signed Date/Time 11/15/17 1806 Co Signed Electronically By: Heber Signed Date/Time: CC: TORITO KNUTSON URINALYSIS Collected: 09/23/2017 Status: F Source: [place] 11:09 [facility] REPOSITORY TYPE CODE TESTS RESULT OUT OF RANGE REFERENCE UNITS LAB UCOL Yellow Abnormal Color Evelina Alert LAB [facility] Clear Abnormal Clarity Turbid Alert LAB UGLUC Negative mg/dL Glucose, Negative Urine LAB UBIL Negative 1+ Abnormal Bilirubin, Alert Urine Result Comment: Suggest correlation with clinical findings and serum bilirubin if clinically indicated. LAB UKET Negative Abnormal Ketones, Urine Alert Trace LAB [facility] 1.005-1.030 High Specific [place], Ur 1.033 LAB UHGB Negative Hemoglobin/Blood,U Negative r LAB UPH 4.5-8.0 pH 5.0 LAB UPROT Negative mg/dL Abnormal Protein, Urine Alert 100 LAB UUROB Normal Abnormal Urobilinogen Alert Elevated LAB UNITR Negative Nitrites Negative LAB ULKEST Negative Abnormal Leukest 1+ Alert LAB UCOM Comments SEE COMMENT Result Comment: Microscopic Examination Performed LAB UWBC 0-5 /HPF Abnormal Alert WBC 6-10 LAB URBC 0-3 /HPF RBC 0-3 LAB UMCOM Urine Derek SEE COMMENT Comment Result Comment: N/A LAB UCRYS 0 /HPF Abnormal Alert Crystals SEE COMMENT Result Comment: Moderate Calcium Oxalate Crystal Performed By: #### UA, UGCCT #### [facility] [address] [address] GC/CHLAMYDIA AMP, UR Collected: 09/23/2017 Status: F Source: [place] 11:09 AM [facility] REPOSITORY TYPE CODE TESTS RESULT OUT OF REFERENCE UNITS RANGE LAB UGCAMP GC Negative Amplification, for Neisseria Ur gonorrhoeae by amplification. LAB UCLAMP Negative Chlamydia for Chlamydia Amplif, Ur trachomatis by amplification. Performed By: #### UA, UGCCT #### [place] [address] SYPHILIS IGG WITH Collected: 09/23/2017 Status: F Source: [facility] 11:08 AM [facility] REPOSITORY TYPE CODE TESTS RESULT OUT OF REFERENCE UNITS RANGE LAB SYPHQL Nonreactive Syphilis IgG, Nonreactive Qual Result Comment: In conjunction with this result, the immune status of the patient should be evaluated based on their clinical status, related risk factors, and other diagnostic test results. LAB SYPHLG AI Syphilis IgG <0.2 Result Comment: Antibody index is interpreted as follows: Non reactive SPECIMENS <=0.8 Weak reactive SPECIMENS 0.9 to 5.9 Reactive SPECIMENS >=6.0 Performed By: #### SYPHGX, HIV12C #### [place] [address] HIV 12 COMBO (AG/AB) Collected: 09/23/2017 Status: F Source: [place] 11:08 [facility] REPOSITORY TYPE CODE TESTS RESULT OUT OF REFERENCE UNITS RANGE LAB HVAGAB Non Reactive HIV Non Reactive 12 Ag/Ab Result Comment: (NOTE) HIV Information: [place] Rev. Code 3701.243(E): This information has been disclosed to you from confidential records protected from disclosure by state law. You shall make no further disclosure of this information without the specific, written, and informed release of the individual to whom it pertains, or as otherwise permitted by state law. A general authorization for the release of medical or other information is not sufficient for the purpose of the release of HIV test results or diagnoses. Performed By: #### SYPHGX, HIV12C #### [facility] [address] [place], [place] [address] EMERGENCY DEPARTMENT Observed: 09/19/2017 Status: F Source: [place] SUMMARY 7:14 PM [facility] EMERGENCY DEPARTMENT SUMMARY NAME NUMBER SEX AGE ADMIT DISC TYPE MED.RECORD# MIKHAIL BARRETO JR L [id number] M 37 08/25/17 08/25/17 Sue.RBrian [id number] ROOM:ER-D DATE OF :1980 PHYSICIAN NO.:[id number] PHYSICIAN NAME:E-SIGN JOSE CRAVEN DO PHYSICIAN:NO DOCTOR ON ADMISSION SHEET HISTORY OF PRESENT ILLNESS: This is a 37-year-old male seen in room #6 for discomfort to the right lower ribs, right upper abdomen. He states that about a week ago, on the 20 of August, he was getting into his car to go to work and he slipped across the seat and hit the console with his right ribs. He states that he has had discomfort there since. He has been using acetaminophen to remedy the discomfort, and it has not helped him. It continues to be sore, so he thought there might be something additional going on there, so he came here to the emergency room. He has no local physician. He states he is not a diabetic. He denies any vomiting or diarrhea. He states he has been eating well. He denies any fever or chills. He denies a rash. He denies any urinary symptoms. He states he has had no headache, sore throat, upper respiratory conditions. He has had no cough, and other extremities are nontender. PAST MEDICAL HISTORY: He has a past medical history of hepatitis C and elevated hepatic enzymes, just slightly so, and he has these checked on a periodic basis. He states that is from his hepatitis. MEDICATIONS: He takes medications to prevent him from developing Aids or HIV. FAMILY HISTORY: Mother survives with COPD and diabetes. Father's history is unclear. 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 He states he does smoke. PHYSICAL EXAMINATION: Private vehicle arrival. He was seen in room #6. He is pleasant, alert, and oriented. He is seen at 2115 hours. Neck is easily supple. His head is normocephalic. Tympanic membrane, canals, and pinnae normal. Pharynx is symmetric. No stridor. No hoarseness. No injection. There is no anterior or posterior supraclavicular adenopathy. Lungs are clear. He respires easily. He is tender along the right ribs in the mid axillary line, anterior axillary line and right. There is no obvious swelling. There is no obvious ecchymosis or abrasions. Some of the tenderness extends down onto the right upper quadrant. He is not overweight. The rest of his abdominal examination is normal. His skin is warm and dry. There is no petechiae present there. Heart rate and rhythm is regular. PMI is left breast. He has good radial pulses. He has no peripheral edema. He is easily ambulatory. Vital signs while here: 97.7 temporal scanning, 101 brachial pulse, 18 respirations, 167/109 blood pressure, and 99% saturation. DIAGNOSTIC DATA: Results of his laboratory data: Normal white count and CBC with 3.4 potassium, not considered significant. Glucose is 107, which is normal. SGOT was a hint elevated and SGPT just a hint elevated, neither one of these appear to be significant, and the patient states he has had these elevations in the past. His urine is normal. EMERGENCY DEPARTMENT COURSE AND TREATMENT: CBC, urine, CMP, lipase, and CT of the abdomen and pelvis with chest without contrast were obtained. I think this is a contusion based on the CT being negative that was done of his chest, abdomen, and pelvis. I told the patient this is probably bruised ribs and that this would all resolve. He is to do normal activity. DIAGNOSIS: PLAN/DISPOSITION: He is to follow up with [facility], since he has no local physician if he is not improved in a number of days. He is okay to work and drive and return p.r.n. as necessary. D: Jose Craven MD TD: 07:51 JOB #: [id number] Electronically signed by: E-SIGN JOSE CRAVEN DO 09/19/17 19:14 Transcribed by: am 08/27/2017 11:16 URINALYSIS Collected: 08/25/2017 Status: F Source: [facility] 10:00 PM [facility] REPOSITORY TYPE CODE TESTS RESULT OUT OF REFERENCE UNITS RANGE LAB URINALYSIS (LOINC) URINALYSIS Result Comment: URINALYSIS LAB Specimen Type(LOINC) Specimen Type Void LAB Color(LOINC) NORMAL: YELLOW Color YELLOW LAB Clarity(LOINC) NORMAL: CLEAR Clarity clear LAB ph(LOINC) NORMAL: 5.0-8.0 ph 7 LAB Protein(LOINC) NORMAL: NEGATIVE Protein NEG LAB Glucose(LOINC) NORMAL: NORMAL Glucose NORM LAB Ketone(LOINC) NORMAL: NEGATIVE Ketone NEG LAB Bilirubin(LOINC) NORMAL: NEGATIVE Bilirubin NEG LAB Blood(LOINC) NORMAL: NEGATIVE Blood Abnormal 25 LAB Urobilinog(LOINC) NORMAL: NORMAL Urobilinog NORM LAB Sp [place](LOINC) NORMAL: 1.010-1.030 Sp [place] 1.010 LAB Nitrite(LOINC) NORMAL: NEGATIVE Nitrite NEG LAB Leukocytes(LOINC) NORMAL: NEGATIVE Leukocytes NEG LAB Microscopic(LOINC ) Microscopic SEE BELOW Result Comment: MICROSCOPIC LAB Wbc(LOINC) 0-5/hpf Wbc 1-5 LAB Rbc(LOINC) 0-3/hpf Rbc 0-5 LAB Casts(LOINC) Casts NONE LAB Crystals(LOINC) Crystals NONE LAB Amorphous(LOINC) Amorphous NONE LAB Bacteria(LOINC) Bacteria NONE LAB Epi Cells(LOINC) Epi Cells NONE LAB Mucous(LOINC) Mucous NONE LAB Yeast(LOINC) Yeast NONE Performed By: #### [id number] #### [facility],[address] [place] [address] CBC Collected: 08/25/2017 Status: F Source: [facility] 9:58 PM [facility] REPOSITORY TYPE CODE TESTS RESULT OUT OF RANGE REFERENCE UNITS LAB CBC(LOINC) CBC Result Comment: CBC-COMPLETE BLOOD COUNT LAB WBC(LOINC) 4.5 - 10.8 x 10EE3/UL WBC 10.4 LAB RBC(LOINC) 4.50 - x 10EE6/UL 6.00 RBC 5.09 LAB HEMOGLOBIN(LOINC) 13.0 - g/dl 17.5 HEMOGLOBIN 16.5 LAB HEMATOCRIT(LOINC) 40.0 - % 52.0 HEMATOCRIT 47.2 LAB MCV(LOINC) 81 - 98 fl MCV 93 LAB MCH(LOINC) 27 - 33 pg MCH 32 LAB MCHC(LOINC) 32 - 36 X10 3 MCHC 35 LAB RDW/CV(LOINC) 12.0 - % 15.6 RDW/CV 13.4 LAB PLATELET(LOINC) 150 - 450 x10EE3/UL PLATELET 252 LAB MPV(LOINC) 6.4 - 10.5 fl MPV 7.8 Result Comment: AUTOMATED DIFFERENTIAL LAB NEUT %(LOINC) 46.0 - 76.0 % NEUT % 56.3 LAB LYMPH %(LOINC) 20.0 - 45.0 % LYMPH % 33.5 LAB MONOS %(LOINC) 0.0 - 10.0 % MONOS % 6.5 LAB EO %(LOINC) 0.0 - 7.0 % EO % 3.1 LAB BASO %(LOINC) 0.0 - 2.0 % BASO % 0.6 LAB Lymph #(LOINC) 0.80 - 2.80 x10EE3/U L Lymph # High 3.50 LAB Neut #(LOINC) 1.50 - 7.10 x10EE3/U L Neut # 5.80 LAB [place] #(LOINC) 0.20 - 1.00 x10EE3/U L [place] # 0.70 LAB EO #(LOINC) 0.00 - 0.50 x10EE3/U L EO # 0.30 LAB Baso #(LOINC) 0.00 - 0.10 x10EE3/U L Baso # 0.10 LAB MANUAL DIFF(LOINC) MANUAL DIFF N/A LAB MORPHOLOGY(LOINC ) MORPHOLOGY N/A Result Comment: {CD] Performed By: #### [id number] #### [facility],[address] [place] [address] CMP WITH EGFR Collected: 08/25/2017 Status: F Source: [facility] 9:58 PM [facility] REPOSITORY TYPE CODE TESTS RESULT OUT OF RANGE REFERENCE UNITS LAB CMP with eGFR(LOINC) CMP with eGFR Result Comment: COMPREHENSIVE METABOLIC PANEL LAB SODIUM(LOINC) 136 - 145 mmol/l SODIUM 138 LAB POTASSIUM(LOINC) 3.5 - 5.1 mmol/L Low POTASSIUM 3.4 LAB CHLORIDE(LOINC) 98 - 107 mmol/L CHLORIDE 107 LAB CO2(LOINC) 21.0 - mmol/L 31.0 CO2 23.8 LAB GLUCOSE(LOINC) 74 - 106 mg/dl GLUCOSE High 107 LAB BUN(LOINC) 6 - 20 mg/dl BUN 11 LAB CREATININE(LOINC) 0.7 - 1.3 mg/dl CREATININE 0.9 LAB AST/SGOT(LOINC) 13 - 39 U/L AST/SGOT High 43 LAB ALK PHOS(LOINC) 38 - 126 U/L ALK PHOS 57 LAB CALCIUM(LOINC) 8.6 - mg/dl 10.2 CALCIUM 9.6 LAB TOTAL 6.4 - 8.3 g/dl PROTEIN(LOINC) TOTAL PROTEIN 7.3 LAB ALBUMIN(LOINC) 3.4 - 4.8 g/dL ALBUMIN 4.3 LAB GLOBULIN(LOINC) 1.5 - 3.8 G/DL GLOBULIN 3.0 LAB A/G RATIO(LOINC) 0.9 - 1.6 A/G RATIO 1.4 LAB TOTAL BILI(LOINC) 0.0 - 1.5 mg/dl TOTAL BILI 0.3 LAB B/C RATIO(LOINC) 0 - 30 ratio B/C RATIO 12 LAB ALT/SGPT(LOINC) 10 - 40 U/L ALT/SGPT High 68 LAB ANION GAP(LOINC) 10 - 20 mmol/L ANION GAP 11 LAB AGE(LOINC) years AGE 37 LAB eGFR(LOINC) 60 - 999 ML/MINUTE eGFR >60 LAB eGFR(AA)(LOINC) 60 - 999 ML/MINUTE eGFR(AA) >60 Result Comment: ACCORDING TO THE NATIONAL KIDNEY DISEASE EDUCATION PROGRAM(NKDE), A NORMAL eGFR IS A VALUE GREATER THAN OR EQUAL TO 60 ML/MIN/1.73 SQ METERS. CHRONIC KIDNEY DISEASE: <60mL/MIN/1.73 SQ METERS KIDNEY FAILURE: <15mL/MIN/1.73 SQ METERS THIS TEST SHOULD ONLY BE USED FOR PATIENTS 18 YEARS OF AGE AND OLDER. Performed By: #### [id number] #### [facility],[address] [place] [address] LIPASE Collected: 08/25/2017 Status: F Source: [facility] 9:58 PM [facility] REPOSITORY TYPE CODE TESTS RESULT OUT OF REFERENCE UNITS RANGE LAB LIPASE(LOIN 18.0 - 51.0 U/L C) LIPASE 18.0 Performed By: #### [id number] #### [facility],[address] [place] [address] CT CHEST/ABD/PELVIS C- Observed: 08/25/2017 Status: F Source: [place] 9:50 PM [facility] REPOSITORY [place] [address] Patient: MARY LOU ELIZONDO JR Phone#: : [phone] Age: 37 Gender: M Pt. Type: ER Account: [id number] [facility] Ordering: DR. JOSE CRAVEN Exam Date: 08/25/2017/21:39 Family Phys: NO DOCTOR Charge Code: [id number] Physician: [place] Order #: [id number] DLP Dose#: PROCEDURE: CT CHEST/ABD/PELVIS WO COMPARISON: None. INDICATIONS: Right side rib pain TECHNIQUE: CT images were obtained without the administration of intravenous contrast material. All CT scans at this facility use dose modulation, iterative reconstruction, and/or weight based dosing when appropriate to reduce radiation dose to as low as reasonably achievable. IV CONTRAST: No IV contrast used,0ml TOTAL DOSE: 5.4 CTDIvol(mGy) FINDINGS: LUNGS: Normal. No visible pulmonary disease. VASCULATURE: Normal. Thrombus cannot be excluded without intravenous contrast. ANDERS: Normal. No mass or adenopathy. MEDIASTINUM: Normal. No mass or adenopathy. CARDIAC: Normal. No enlargement, pericardial thickening, or significant calcification. PLEURA: Normal. No mass or effusion. CHEST WALL: Normal. No mass or axillary adenopathy. LIVER: Normal. No enlargement, atrophy, abnormal density, or significant focal lesion. BILIARY: Gallbladder is absent. Surgical clips are present in the gallbladder fossa. PANCREAS: Normal. No lesion, fluid collection, ductal dilatation, or atrophy. SPLEEN: Accessory splenic tissue is present. No enlargement or focal lesion. KIDNEYS: Normal. No mass, obstruction, or calcification. ADRENALS: Normal. No mass or enlargement. AORTA/VASCULAR: Normal. No aneurysm. Continued Report - Page 2 of 2 Patient: MARY LOU ELIZONDO JR. Phone#: : 1980 Age: 37 Gender: M Pt. Type: ER Account: [id number] Location: 052 Ordering: DR. JOSE CRAVEN Exam Date: 08/25/2017/21:39 Family Phys: NO DOCTOR Charge Code: [id number] Physician: [place] Order #: [id number] DLP Dose#: [id number]: Normal. No mass or adenopathy. BOWEL/MESENTERY: Normal. No visible mass, obstruction, or bowel wall thickening. ABDOMINAL WALL: Normal. No mass or hernia. URINARY BLADDER: Normal. No visible focal wall thickening, lesion, or calculus. PELVIC NODES: Normal. No adenopathy. PELVIC ORGANS: Normal. No visible mass. Pelvic organs appropriate for patient age. BONES: Normal. No bony lesion or fracture. OTHER: Negative. CONCLUSION: No acute disease. Dictated by: Mya Tomas MD on 08/27/2017 at 12:52 Approved by: Mya Tomas MD on 08/27/2017 at 12:52 EMERGENCY DEPARTMENT Observed: 08/24/2017 Status: F Source: [place] SUMMARY 4:32 PM [facility] REPOSITORY [facility] Medical Records Department [address] [place] [id number] Emergency Department Summary 08/23/17 2214 MR#: [id number] Acct: [id number] Name: MARY LOU ELIZONDO Rep #: [id number] : 1980 37 From: Rush Elizalde DO PCP: Care Physician, No Primary Status: DEP ER - ER Visit Summary Date of Service: 08/23/17 Chief Complaint: Rib pain History of Present Illness: The patient is a 37 M who states that 2 nights ago he was leaning over the console car when he slipped came down on the console in his right lower ribs. States he has had pain since that time. No hematuria. He denies any hemoptysis. No abdominal pain. No shortness of breath. Physical Examination: afebrile vital signs are stable Patient has tenderness to palpation over the right mid axillary ribs particularly 8 through 12. The abdominal exam is benign. There is no obvious deformity ecchymosis. Test Results: Hip series is negative for fracture effusion or contusion. Emergency Department Course and Treatment: To be discharged home with supportive care. Return if worsening follow-up if not improving Impression: 1. Right rib contusion This note was generated with Examify dictation software. It may contain incorrect words, spelling, and punctuation that were not noted in review of the chart prior to signing ED Disposition - Plan for ED Patient: Disposition: Home or Assisted Living Chief Complaint: Other, Pain/Inj Instructions: ED Contusion Rib Referrals: Care Physician,No Primary [Primary Care Provider] - Dre Og MD [STAFF PHYSICIAN] - As Needed What to do if you have Problems For any increased pain, shortness of breath, bleeding, nausea or vomiting, chest pain, or any unexpected problems, contact your Primary Care Provider. Call [facility] ([phone]) or report to the closest Emergency Room. Call 911 if necessary. 08/24/17 1632 <Electronically signed by Rush Elizalde DO> Date Rush Elizalde DO Cosigner Signature (If Indicated): Date CC: No Primary Care Physician RIBS UNI MIN 3V Observed: 08/23/2017 Status: F Source: [place] W/PA CHEST 9:02 PM [facility] REPOSITORY [facility] Imaging Services [address] [place] [address] Ribs Uni Min 3V w/PA Chest MR#: [id number] Acct: [id number] Name: MARY LOU ELIZONDO Rep #: [id number] : 1980 M 37 From: Sukhdeep Ragland MD PCP: Care Physician, No Primary Status: REG ER Study: Ribs Uni Min 3V w/PA Chest Date of Exam: 08/23/17 Exam# [id number] Ordering Dr: Rush Elizalde DO STUDY: X-RAY CHEST REASON FOR EXAM: Male, 37 years old. Trauma 2 days ago TECHNIQUE: Single PA view of the chest. COMPARISON: Prior chest study of 03/25/2015 FINDINGS: The lungs are clear and expanded. There is mild bilateral apical pleural thickening. Normal size heart. Normal mediastinum and anders. Normal visualized pulmonary arteries. Normal visualized aortic arch and descending thoracic aorta. Normal visualized thoracic spine. Normal visualized ribs, clavicles, and shoulders. There is no demonstrated abnormality of the visualized soft tissue structures of the upper abdomen. IMPRESSION: Mild bilateral apical pleural thickening. No acute cardiopulmonary disease process is seen. Electronically Signed: Sukhdeep Ragland MD at 22:00 EST , Service support , STUDY: X-RAY - UNILATERAL RIBS ( RIGHT ) REASON FOR EXAM: Male, 37 years old. Trauma 2 days ago TECHNIQUE: 4 view(s) of the ribs. COMPARISON: None. FINDINGS: Normal visualized ribs without a demonstrated fracture. The visualized lung is clear and expanded. RAD/Ribs Uni Min 3V w/PA Chest IMPRESSION: Normal x-ray examination of the ribs. Electronically Signed: Sukhdeep Ragland MD at 22:03 EST , Service support , CC: No Primary Care Physician; Rush Elizalde DO Pallet Assembler: Signed EMERGENCY DEPARTMENT Observed: 08/22/2017 Status: F Source: [facility] 10:[address] [place] [address] HEALTH INFORMATION MANAGEMENT EMERGENCY DEPARTMENT : [id number] Signed Patient: MARY LOU ELIZONDO Acct:[id number] MRUN: [id number] : 1980 Sex: M Loc: ED ADM Date: 08/22/17 Room/Bed: DISC Date: History of Present Illness - General Chief Complaint: Pain Stated Complaint: RIGHT SIDE PAIN Symptom onset: 08/22/17 HPI: rt rib pain for a couple days. worse today. states hx kidney stones and also slipped on sat hitting ribs on counter. COMPLAIN OF PAIN TO THE RIGHT LOWER RIB AREA, and right upper quadrant of the abdomen. Denies any vomiting. Denies any bleeding. No testicular or scrotal pain. No penile bleeding or discharge. No back pain or saddle anesthesia. No trouble with bowel or bladder function. Pain is dull and worse with movement, nonradiating. No fever/hemoptysis. No pain or swelling of extremities. Denies any travelling history/sick contacts/recent use of antibiotics. No cough/congestion/fever/chills/rash. No blood in stool/vomitus or urine. NO LOC/Dizziness/ Syncope. No VALLADARES, neck pain, CP, dyspnea. No speech/vision problems. No numbness, tingling or paresthesias. No unilateral weakness in face or extremities. Time Seen by Provider: 08/22/17 21:20 Mode of Transport: Ambulatory - Related Data Home Medications Medication Instructions Recorded Confirmed Emtricitabine/Tenofovir (Tdf) 1 tab PO DAILY 08/22/17 08/22/17 [Truvada 200 mg-300 mg Tablet] Allergies Allergy/AdvReac Type Severity Reaction Status Date / Time adhesive Allergy BREAKS OUT Verified 08/22/17 21:19 IN RASH amantadine Allergy Verified 08/22/17 21:19 ketorolac tromethamine Allergy RASH Verified 08/22/17 21:19 [From Toradol] tramadol Allergy RASH Verified 08/22/17 21:19 codeine AdvReac Skin Rash Verified 08/22/17 21:19 - Hives Review of System - Constitutional Constitutional: Present: Well developed, Well nourished, Non- toxic. Absent: chills, diaphoresis, fever, malaise, weakness, Lethargic - Nose,Throat,Mouth Nose (ROS): Absent: pain Throat: Absent: pain, swelling, discharge Mouth: Absent: pain, swelling - Respiratory Respiratory: Present: no symptoms reported. Absent: cough, sputum, orthopnea, short of breath, stridor, wheezing, hemoptysis, night sweats - CV Cardiology: Present: CP with movement (rt lower chest). Absent: edema, palpitations, syncope - GI Gastrointestinal/Abdominal: Present: abdominal pain. Absent: diarrhea, nausea, vomiting - Genitourinary Symptoms: Present: no symptoms reported. Absent: discharge, dysuria, flank pain, pain - Neuro Neurological: Present: no symptoms reported. Absent: headache, weakness, saddle anesthesia - Muskuloskeletal Musculoskeletal: Present: no symptoms reported. Absent: back pain, joint pain, joint swelling, neck pain - Integumentary Skin: Absent: lesions, rash - Allergic/Immunologic Immunological/Allergic: Present: no symptoms reported - Hematologic Hematologic/Lymphatic: Absent: easy bleeding, easy bruising, swollen glands - Endocrine Endocrine: Present: no symptoms reported - Psychiatric Psychiatric: Present: Normal Affect, Normal Mood. 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 - Reproductive OB Related Complications: None - Psychological Hx Psychosocial Problems: No PMH--Psychological Treatments: Anxiety, Depression - HEENT Hx Ear, Nose Throat Disorders: Yes PMH--Ears Nose and Throat: Farsighted, Nearsighted Past Surgical Hx-ENT: Dental Surgery Other HEENT PSH: LEFT LAZY EYE SURGERY CORRECTION - Cancer Hx Cancer: No - Immunizations Hx Tetanus, Diphtheria Vaccination: No Hx Influenza Vaccination: Yes Hx Pneumococcal Vaccination: No - Other Other PMH: MRSA - Social History Marital Status: Single Lives with: Family Highest Educational Level: High School Able to Read: Yes Able to Write: Yes Smoking Status: Heavy Smoker (>10 cig/day) Packs Per Day Reported: 0.5 Smoked in Last year: Yes Any Secondhand smoke exposure Reported?: No Hx Chewing Tobacco Use: No Alcohol Use: Never Any recreational drug use reported?: No Hx Substance Use Treatment: No Feels Threatened In Home Environment: No Feels Threatened In a Relationship: No Hx Physical Abuse: No Hx Emotional Abuse: No Hx Suspected Abuse: No - Family PMH Mother Living Status: Still Living Cardiac: Cardiac Disorder(s) General Exam - General Limitations: Complains of: no limitations Constitutional: Present: Well developed, Well nourished, well hydrated, Non-toxic. Absent: chills, diaphoresis, fever, malaise, weakness, Lethargic - Head Head exam: Present: atraumatic, normocephalic, normal inspection - Eye Eye exam: Present: normal apperance, normal accomodation, EOMI Pupils: Present: PERRL - ENT ENT exam: Present: normal orophraynx, mucous membranes moist, TMs clear w/ good light reflex, normal external ear exam, No Nasal Discharge, Posterior Pharynx Non-erethemetous - Expanded ENT Exam Ear exam: Present: normal external inspection Mouth exam: Present: normal external inspection Teeth exam: Present: normal inspection Throat exam: normal inspection - Neck Neck exam: Present: full ROM, Supple. Absent: tenderness, meningismus, Posterior Lymphadenopathy, Anterior Lymphadenopathy, anterior neck swelling, tracheal deviation - Respiratory Respiratory exam: Present: lungs clear equal bilaterally, chest wall tenderness (rt lower chest). Absent: respiratory distress, wheezes, rales, rhonchi, stridor, decreased breath sounds, accessory muscle use, prolonged expiratory phase, Subcostal Retractions, Intercostal Retractions, Other Retractions, Nasal Flaring, Flail segment, Ecchymosis, Crepitus - Cardiovascular Cardiovascular Exam: Present: regular rate, normal rhythm, normal heart sounds. Absent: murmur, rubs, gallop, clicks - GI/Abdominal GI/Abdominal exam: Present: soft, normal bowel sounds, tenderness (ruq/rlq area), equal femoral pulses. Absent: guarding, rebound, rigid, organomegaly, mass, bruit, pulsatile mass, hernia - Male Exam exam: Present: normal inspection, other (No inguinal hernia or lymphadenopathy. No testicular/ scrotal redness or swelling or tenderness) - Extremities Exam Extremities exam: Present: normal inspection, neurovascularly intact, full ROM, normal muscle strength, normal reflexes, normal/equal pulses. Absent: calf tenderness, pedal edema, tenderness - Back Exam Back exam: Present: normal inspection, full ROM. Absent: tenderness, CVA tenderness (R), CVA tenderness (L), vertebral tenderness, rash noted, cervical tenderness, thoracic tenderness, lumbar tenderness - Neurological Exam Neurological exam: Present: alert, oriented X3, CN II-XII intact, normal gait, reflexes normal. Absent: motor sensory deficit - Expanded Neurological Exam Patient oriented to: Present: person, place, time Speech: Present: fluid speech - Psychiatric Psychiatric exam: Present: normal affect, normal mood - Skin Skin Color: Present: Normal, [place] Skin exam: Present: warm, dry - Expanded Skin Exam Type of lesion: Absent: rash - Vital Signs Vital Signs 08/22/17 08/22/17 21:20 22:10 Temperature 99.0 F 98.9 F Pulse Rate [ 108 H 92 Pulse Ox] Respiratory 20 20 Rate Blood Pressure 131/90 128/76 [Right Arm Sitting] O2 Sat by Pulse 99 9 L Oximetry(%) Course - Reevaluation(s) Reevaluation #1: 08/22/17 22:28 labs reviewed, unremarkable X-ray ribs and chest/CT abdomen and pelvis negative for any acute abnormalities or trauma Symptoms appear to be contusion in nature Discussed with patient about supportive care. Tylenol for pain as needed Patient is tolerating PO well, ambulating well. Patient appears well hydrated, nontoxic V.S are stable. Patient is hemodynamically stable. NV intact. Speech and grasp are intact, normal gait. No Vision problems. Nonacute/nonsurgical abdomen Exam, Negative Meningeal signs. Reassuring Labs and V.S. Patient appears stable for discharge and outpatient follow up. Warning signs discussed with patient to return back to ER if any worsening of symptoms. Patient states understanding of need for f/up and agrees with management and plan. Abdominal pain MDM - Lab Data Result diagrams: 08/22/17 21:55 08/22/17 21:55 Lab Results 08/22/17 08/22/17 08/22/17 Range/Units 00:00 21:55 21:55 WBC 10.5 (3.6-10.8) K/uL RBC 5.13 (4.13-5.69) M/uL Hgb 16.3 (12.4-17.3) g/dL Hct 47.8 (36.7-50.6) % MCV 93.2 (80.0-94.0) fL MCH 31.7 H (27.0-31.0) pg MCHC 34.1 (33.0-37.0) g/dL RDW 13.6 (11.5-14.5) % Plt Count 274 (148-402) K/uL MPV 7.7 (7.4-10.4) fL Neut % 53.5 (43.0-65.0) % Lymph % 35.7 (17.0-45.5) % [place] % 7.8 (5.5-11.7) % Eos % 2.4 (0.9-2.9) % Baso % 0.6 (0.2-1.0) % Absolute Neuts (auto) 5.6 H (2.2-4.8) K/uL Absolute Lymphs (auto) 3.8 H (1.3-2.9) K/uL Absolute Monos (auto) 0.8 (0.3-0.8) K/uL Absolute Eos (auto) 0.3 H (0.0-0.2) K/uL Absolute Basos (auto) 0.1 (0.0-0.1) K/uL Nucleated RBC % 0 % Nucleated RBCs # 0 K/uL Sodium 141 (132-145) mmol/L Potassium 3.9 (3.3-5.1) mmol/L Chloride 107 (94-110) mmol/L Total Carbon Dioxide 27 (21-34) mmol/L Anion Gap 10.9 (8.0-16.0) mmol/L BUN 8.9 (3.2-26.9) mg/dL Creatinine 0.92 (0.50-1.17) mg/dL Est GFR (MDRD) Af Amer > 60 (>60) Est GFR (MDRD) Non-Af > 60 (>60) BUN/Creatinine Ratio 10 (6-20) Glucose 108 H (65-100) mg/dL Calcium 8.5 (8.2-10.0) mg/dL Total Bilirubin 0.21 (0.00-0.99) mg/dL AST 21 (3-39) U/L ALT 29 (13-66) U/L Alkaline Phosphatase 81 (54-112) U/L Total Protein 7.4 (6.1-8.2) g/dL Albumin 3.7 (3.4-5.0) g/dL Globulin 3.7 (1.5-4.5) g/dL Albumin/Globulin Ratio 1.0 L (1.1-2.5) Lipase 112 (65-230) U/L Urine Color P. yellow (Yellow) Urine Appearance Clear (Clear) Urine pH 7 Ur Specific [place] 1.005 L (1.015-1.025) Urine Protein Negative (Negative) Urine Ketones Negative (Negative) Urine Blood Negative (Negative) Urine Nitrite Negative (Negative) Urine Bilirubin Negative (Negative) Urine Urobilinogen Normal (Normal-1.0) mg/dL Ur Leukocyte Esterase Trace A (Negative) Urine WBC 0-2 (0 - 6) /hpf Urine Glucose Normal (Negative) Orders: Medications Discontinued Medications Acetaminophen (Tylenol Es 500 Mg Tablet) 500 mg PO ONE ONE Stop: 08/22/17 21:55 Last Admin: 08/22/17 22:09 Dose: 500 mg Dicyclomine HCl (Bentyl 10 Mg Capsule) 20 mg PO STAT STA Stop: 08/22/17 21:55 Last Admin: 08/22/17 22:09 Dose: 20 mg Labs 08/22/17 21:24 ED-IV [RC] ONE 08/22/17 21:25 CT ABD/PELVIS W/O [CT] Stat RIBS 2V UNIL INCL PA CHEST [DIAG] Stat 08/22/17 21:30 UA w/micrscopic-reflex culture [URN] Stat 08/22/17 21:54 Acetaminophen [Tylenol Es 500 mg Tablet] 500 mg PO ONE ONE Dicyclomine HCl [Bentyl 10 mg Capsule] 20 mg PO STAT STA 08/22/17 21:55 CBC w/Auto Differential [HEM] Stat Comprehensive Metabolic Panel [CHM] Stat Lipase [CHM] Stat - Radiology Data Radiology Report: Radiology report reviewed,see report for findings Radiology Impressions Abdomen/Pelvis CT 08/22/17 21:25 IMPRESSION: No radiographic evidence for acute traumatic injury involving the abdomen or pelvis on this unenhanced exam. New asymmetrically distended small bowel loops left upper quadrant and possible wall thickening none likely clinical significance unless there is clinical concern for enteritis or left upper quadrant pain. If further imaging needed contrast-enhanced CT or enterography suggested. Ribs w/Chest X-Ray 08/22/17 21:25 IMPRESSION: Negative bilateral ribs and chest. - Differential Diagnosis Differential DX Abdominal pain: Considered: Appendicitis, Cholecystitis, Renal/ureteral calculi MDM Abdominal Pain-Other: Currently no surgical or severe medical etiology found, Pt afebrile, Tolerating PO W/O difficulty, Good pain control chest wall contusion/rib fracture/pneumothorax/abdominal wall contusion ED Discharge Summary - Discharge Data Clinical Impression: Contusion of right chest wall, Contusion, abdominal wall Condition: Good Referrals: TORITO KNUTSON [Primary Care Provider] - Additional Instructions: 1) Return to ER if symptoms worse/any other problems. 2) Call and f/up with YOUR DOCTOR in 2-3 days for reevaluation of current symptoms/findings/recheck for bowel wall thickening as seen on CT scan. Call your Doctor tomorrow morning and schedule follow- up appointment. 3) Take Tylenol for pain every 6 to 8 hours as needed for the next 1-2 days Home Medications: Ambulatory Orders Medication Instructions Recorded Emtricitabine/Tenofovir (Tdf) 1 tab PO DAILY 08/22/17 [Truvada 200 mg-300 mg Tablet] Time Seen by Provider: 08/22/17 21:20 Electronically Generated By: CONNIE LUKE MD Generated Date/Time: 08/22/17 4386 Electronically Signed By: CONNIE LUKE MD Signed Date/Time 08/22/17 2621 Co Signed Electronically By: Co Signed Date/Time: CC: TORITO KNUTSON CBC W/AUTO DIFFERENTIAL Collected: 08/22/2017 Status: F Source: [place] 9:55 PM [facility] REPOSITORY TYPE CODE TESTS RESULT OUT OF REFERENCE UNITS RANGE LAB WBCIR(GITA 3.6-10.8 K/uL NC) WBC 10.5 LAB RBC(LOINC 4.13-5.69 M/uL ) RBC 5.13 LAB HGB(LOINC 12.4-17.3 g/dL ) HGB 16.3 LAB HCT(LOINC 36.7-50.6 % ) HCT 47.8 LAB MCV(LOINC 80.0-94.0 fL ) MCV 93.2 LAB MCH(LOINC 27.0-31.0 pg ) MCH High 31.7 LAB MCHC(LOIN 33.0-37.0 g/dL C) MCHC 34.1 LAB RDW(LOINC 11.5-14.5 % ) RDW 13.6 LAB PLTI(LOIN 148-402 K/uL C) Platelet Count 274 LAB MPV(LOINC 7.4-10.4 fL ) MPV 7.7 LAB SEGR(LOIN 43.0-65.0 % C) Neutrophils % 53.5 LAB LYMPR(GITA 17.0-45.5 % NC) Lymphocytes % 35.7 LAB MONOR(GITA 5.5-11.7 % NC) Monocytes % 7.8 LAB EOSR(LOIN 0.9-2.9 % C) Eosinophils % 2.4 LAB BASOR(GITA 0.2-1.0 % NC) Basophils % 0.6 LAB NRBC%(GITA % NC) NRBC % 0.0 LAB ASEGR(GITA 2.2-4.8 K/uL NC) Neutrophils Abs. # High 5.6 LAB ALYMR(GITA 1.3-2.9 K/uL NC) Lymphocytes Abs. # High 3.8 LAB AMONR(GITA 0.3-0.8 K/uL NC) Monocytes Abs. # 0.8 LAB AEOSR(GITA 0.0-0.2 K/uL NC) Eosinophils Abs. # High 0.3 LAB ABASR(GITA 0.0-0.1 K/uL NC) Basophils Abs. # 0.1 LAB NRBC#(GITA K/uL NC) NRBC Abs. # 0.0 LAB LYPN%(GITA NC) Lymphopenia % GUN NUMBERER LAB LYPN#(GITA NC) Lymphopenia # GUN NUMBERER LAB LYCT%(GITA NC) Lymphocytosis % GUN NUMBERER LAB NEPN%(GITA NC) Neutropenia % GUN NUMBERER LAB NEPN#(GITA NC) Neutropenia # GUN NUMBERER LAB EOPH%(GITA NC) Eosinophilia % GUN NUMBERER LAB ANEM(LOIN C) Anemia GUN NUMBERER LAB PNCP(LOIN C) Pancytopenia GUN NUMBERER LAB SMLPT(GITA NC) Small Platelets GUN NUMBERER LAB ERCT(LOIN C) Erythocytosis GUN NUMBERER LAB MACT(LOIN C) Macrocytosis GUN NUMBERER LAB BAPH#(GITA NC) Bosophillia # GUN NUMBERER LAB BAPH%(GITA NC) Basophillia % GUN NUMBERER LAB LUCT(LOIN C) Leukocytosis GUN NUMBERER LAB NEPH%(GITA NC) Neutrophilia % GUN NUMBERER LAB NEPH#(GITA NC) Neutrophilla # GUN NUMBERER LAB ANCT(LOIN C) Anisocytosis GUN NUMBERER LAB MICT(LOIN C) Microcytosis GUN NUMBERER LAB HY(LOINC) Hypochromia GUN NUMBERER LAB PKCT(LOIN C) Poikilocytosis GUN NUMBERER LAB THCT(LOIN C) Thrombocytosis GUN NUMBERER LAB THCO(LOIN C) Thrombocytopenia GUN NUMBERER LAB THCP(LOIN C) Thrombocytopenia. GUN NUMBERER LAB LRGPT(GITA NC) Large Platelets GUN NUMBERER LAB MOCT%(GITA NC) Monocytosis % GUN NUMBERER LAB LUPN(LOIN C) Leukopenia GUN NUMBERER LAB LYCT#(GITA NC) Lymphocytosis # GUN NUMBERER LAB EOPH#(GITA NC) Eosinophilia # GUN NUMBERER Performed By: #### CBC #### [facility] [address] [place], [place] [address] COMPREHENSIVE METABOLIC Collected: 08/22/2017 Status: F Source: [place] PANEL 9:55 PM [facility] REPOSITORY TYPE CODE TESTS RESULT OUT OF REFERENCE UNITS RANGE LAB NA(LOINC) 132-145 mmol/L Sodium 141 LAB K(LOINC) 3.3-5.1 mmol/L Potassium 3.9 LAB CLI(LOINC) 94-110 mmol/L Chloride 107 LAB TCO2(LOINC 21-34 mmol/L ) Total Co2 27 LAB GLU(LOINC) 65-100 mg/dL Glucose High 108 LAB BUN(LOINC) 3.2-26.9 mg/dL BUN 8.9 LAB CREAT(LOIN 0.50-1.17 mg/dL C) Creatinine 0.92 LAB CA(LOINC) 8.2-10.0 mg/dL Calcium 8.5 LAB ALB(LOINC) 3.4-5.0 g/dL Albumin 3.7 LAB TP(LOINC) 6.1-8.2 g/dL Protein 7.4 LAB TBIL(LOINC 0.00-0.99 mg/dL ) Total Bilirubin 0.21 LAB ALP(LOINC) 54-112 U/L Alkaline Phosphatase 81 LAB ALT(LOINC) 13-66 U/L ALT (SGPT) 29 LAB AST(LOINC) 3-39 U/L AST (SGOT) 21 LAB AGAP(LOINC 8.0-16.0 mmol/L ) Anion Gap 10.9 LAB B-C(LOINC) 6-20 BUN/CREAT Ratio 10 LAB A-G(LOINC) 1.1-2.5 Low A/G Ratio 1.0 LAB GLOB(LOINC 1.5-4.5 g/dL ) Globulin 3.7 LAB EGFR4(LOIN >60 C) EGFR Other Races >60 LAB EGFR5(LOIN >60 C) EGFR >60 Result Comment: Chronic Kidney Disease less than 60 mL/min/1.73 m2 Kidney Failure less than 15 mL/min/1.73 m2 Average estimated GFR by age: 30-39 years 107 mL/min/1.73 m2 Performed By: #### CMP #### [address] [address] LIPASE Collected: 08/22/2017 Status: F Source: [place] 9:55 PM [facility] REPOSITORY TYPE CODE TESTS RESULT OUT OF REFERENCE UNITS RANGE LAB LIPAS(LOINC 65-230 U/L ) Lipase 112 Performed By: #### LIPAS #### [address] [address] UA W/MICRSCOPIC-REFLEX Collected: Status: F Source: [place] CULTURE 08/22/2017 9:30 [facility] REPOSITORY TYPE CODE TESTS RESULT OUT OF RANGE REFERENCE UNITS LAB UTYP(LOIN C) Collection Type GUN NUMBERER LAB UCOLR(GITA Yellow NC) Color P. YELLOW LAB UAPP(LOIN Clear C) Appearance CLEAR LAB UGLU(LOIN Negative C) Glucose NORMAL LAB UBIL(LOIN Negative C) Bilirubin NEGATIVE LAB UKET(LOIN Negative C) Ketones NEGATIVE LAB USPG(LOIN 1.015-1.025 C) Low Specific [place] 1.005 LAB UBLD(LOIN Negative C) Blood NEGATIVE LAB UPH(LOINC ) pH 7 LAB UPRO(LOIN Negative C) Protein NEGATIVE LAB UURO(LOIN Normal-1.0 mg/dL C) Urobilinogen NORMAL LAB UNIT(LOIN Negative C) Nitrites NEGATIVE LAB ULEU(LOIN Negative C) Leukocytes Abnormal Esterase Trace LAB UWBC(LOIN 0 - 6 /hpf C) WBC 0-2 LAB URBC(LOIN 0 - 2 /hpf C) RBC GUN NUMBERER LAB UEPI(LOIN 0 - 6 /lpf C) Epithelial Cells GUN NUMBERER LAB UBAC(LOIN 0 - 1+ /hpf C) Bacteria GUN NUMBERER LAB UMUC(LOIN /lpf C) Mucus GUN NUMBERER LAB UCST1(GITA /lpf NC) Casts GUN NUMBERER LAB UCST2(GITA /lpf NC) Casts. GUN NUMBERER LAB UCRY1(GITA NC) Crystals GUN NUMBERER LAB UCRY2(GITA NC) Crystals. GUN NUMBERER LAB UTRIC(GITA NC) Trichomonas GUN NUMBERER LAB UYST(LOIN C) Yeast GUN NUMBERER LAB UOTH(LOIN C) Other GUN NUMBERER Performed By: #### [facility] #### [facility] [address] [place], [place] [address] EMERGENCY DEPARTMENT Observed: 08/09/2017 Status: F Source: [place] SUMMARY 10:54 PM [facility] REPOSITORY [facility] Medical Records Department [address] [place] [address] Emergency Department Summary 08/09/17 2018 MR#: [id number] Acct: [id number] Name: MARY LOU ELIZONDO Rep #: [id number] : 1980 37 From: Bhargavi Morgan MD PCP: Care Physician, No Primary Status: DEP ER - ER Visit Summary Date of Service: 08/09/17 Chief Complaint: Plugged ears and chest congestion History of Present Illness: The patient is a 37 M with ear pressure and pain left more so than right over the past 6 days. He said chest congestion and is bringing up minimal sputum with cough. He reports subjective fevers. Past history of hepatitis C. Physical Examination: Vital signs are gross unremarkable. Head neck examination reveals posterior pharynx to be normal. Left TM is dull and erythematous. Right TM is normal. Heart is regular rate and rhythm. Lung sounds are clear. Abdomen is soft nontender. Test Results: [] Emergency Department Course and Treatment: Patient be treated with a course of Augmentin to cover his ear. I will not bother with a chest x-ray as this will cover respiratory bacterial illness as well. Treatment Plan: [] Disposition: Discharge Impression: Left otitis media This note was generated with Examify dictation software. It may contain incorrect words, spelling, and punctuation that were not noted in review of the chart prior to signing ED Disposition - Plan for ED Patient: Chief Complaint: Cold Sx Referrals: Care Physician,No Primary [Primary Care Provider] - What to do if you have Problems For any increased pain, shortness of breath, bleeding, nausea or vomiting, chest pain, or any unexpected problems, contact your Primary Care Provider. Call [facility] ([phone]) or report to the closest Emergency Room. Call 911 if necessary. 08/09/17 3973 <Electronically signed by Bhargavi Morgan MD> Date Bhargavi Morgan MD Cosigner Signature (If Indicated): Date CC: No Primary Care Physician DISCHARGE INSTRUCTION Observed: 08/09/2017 Status: F Source: [place] 8:20 PM [facility] REPOSITORY [facility] Medical Records Department [address] [place] [address] Discharge Instruction 08/09/17 2019 MR#: [id number] Acct: [id number] Name: MARY LOU ELIZONDO Rep #: [id number] : 1980 37 From: Bhargavi Morgan MD PCP: Care Physician, No Primary Status: PRE ER ED Disposition - Plan for ED Patient: Disposition: Home or Assisted Living Chief Complaint: Cold Sx Instructions: ED Otitis Media Acute Adult Prescriptions: Amox/Clavulanate Tablet [Augmentin Tablet] 875 mg PO Q12H #20 tablet Referrals: Henna Jimenez [NON-STAFF] - As soon as possible What to do if you have Problems For any increased pain, shortness of breath, bleeding, nausea or vomiting, chest pain, or any unexpected problems, contact your Primary Care Provider. Call [facility] ([phone]) or report to the closest Emergency Room. Call 911 if necessary. 08/09/172019 <Electronically signed by Bhargavi Morgan MD> Date Bhargavi Morgan MD Cosign Signature (If Indicated): Date CC: No Primary Care Physician EMERGENCY DEPARTMENT Observed: 08/09/2017 Status: F Source: [place] 7:[address] [place] [address] HEALTH INFORMATION MANAGEMENT EMERGENCY DEPARTMENT : [id number] Signed Patient: MARY LOU ELIZONDO Acct:[id number] MRUN: [id number] : 1980 Sex: M Loc: ED ADM Date: 08/06/17 Room/Bed: DISC Date: 08/06/17 History of Present Illness - General Chief Complaint: EENT Stated Complaint: EAR PAIN HEARING LOSS COUGH CONGESTION Symptom onset: 2 DAYS HPI: PATIENT STATES BOTH OF MY EARS ARE HURTING. THE ONE STARTED YESTERDAY AND NOW THEY BOTH HURT. I HAVE A COUGH AND CHEST CONGESTION TOO. Time Seen by Provider: 08/06/17 16:03 Nurses Notes Reviewed and Agreed With?: Yes Source: Patient Mode of Transport: Ambulatory Who is the Attending Physician?: TORITO KNUTSON Is This The Back Up Physician?: No - History of Present Illness MD Complaint: cough, nasal congestion Severity: mild Severity scale (1-10): 3 Quality: aching Improves With: nothing Worsens With: nothing Context: sick contacts Associated Symptoms: denies other symptoms Treatments Prior to Arrival: none - Related Data Home Medications Medication Instructions Recorded Confirmed Dextromethorphan HBr [Delsym] 5 ml PO BID PRN #90 ml 08/06/17 Fluticasone Propionate [Flonase] 2 sprays NS DAILY #1 spray.susp 08/06/17 Loratadine [Claritin 10 mg Tablet] 10 mg PO DAILY #20 tablet 08/06/17 Sulfamethoxazole/Trimethoprim 1 each PO BID #20 tablet 08/06/17 [Bactrim Ds Tablet] Allergies Allergy/AdvReac Type Severity Reaction Status Date / Time adhesive Allergy BREAKS OUT Verified 08/06/17 16:06 IN RASH amantadine Allergy Verified 08/06/17 16:06 ketorolac tromethamine Allergy RASH Verified 08/06/17 16:06 [From Toradol] tramadol Allergy RASH Verified 08/06/17 16:06 codeine AdvReac Skin Rash Verified 08/06/17 16:06 - Hives Home medications and allergies reviewed: Yes Review of System - Constitutional Constitutional: Present: Well developed, Well nourished, Non-toxic - Ears Bilateral Ear: Present: pain. Absent: bloody discharge, clear discharge, purulent discharge, serosanguinous discharge - Nose,Throat,Mouth Nose (ROS): Present: congestion, purulent discharge. Absent: pain Throat: Absent: pain, swelling, discharge Mouth: Absent: pain, swelling - Respiratory Respiratory: Absent: cough, short of breath, wheezing - CV Cardiology: Absent: chest pain, edema - GI Gastrointestinal/Abdominal: Absent: abdominal pain, diarrhea, nausea, vomiting - Genitourinary Symptoms: Absent: dysuria - Neuro Neurological: Absent: headache, weakness - Muskuloskeletal Musculoskeletal: Absent: back pain, joint pain, joint swelling - Integumentary Skin: Absent: lesions, rash - Allergic/Immunologic Immunological/Allergic: Present: no symptoms reported - Hematologic Hematologic/Lymphatic: Absent: easy bleeding, easy bruising, swollen glands - Endocrine Endocrine: Present: no symptoms reported - Psychiatric Psychiatric: Present: Normal Affect, Normal Mood. 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 - Reproductive OB Related Complications: None - Psychological Hx Psychosocial Problems: No PMH--Psychological Treatments: Anxiety, Depression - HEENT Hx Ear, Nose Throat Disorders: Yes PMH--Ears Nose and Throat: Farsighted, Nearsighted Past Surgical Hx-ENT: Dental Surgery Other HEENT PSH: LEFT LAZY EYE SURGERY CORRECTION - Cancer Hx Cancer: No - Immunizations Hx Tetanus, Diphtheria Vaccination: Yes Hx Influenza Vaccination: Yes Hx Pneumococcal Vaccination: Yes - Other Other PMH: MRSA - Social History Highest Educational Level: High School Able to Read: Yes Able to Write: Yes Smoking Status: Heavy Smoker (>10 cig/day) Hx Chewing Tobacco Use: No Hx Physical Abuse: No Hx Emotional Abuse: No Hx Suspected Abuse: No - Family PMH Mother Living Status: Still Living Cardiac: Cardiac Disorder(s) General Exam - General Limitations: Complains of: no limitations Constitutional: Present: Well developed, Well nourished, well hydrated, Non-toxic - Head Head exam: Present: atraumatic, normocephalic, normal inspection - Eye Eye exam: Present: normal apperance, normal accomodation, EOMI Pupils: Present: PERRL - ENT ENT exam: Present: normal orophraynx, mucous membranes moist, normal external ear exam, Posterior Pharynx Non-erethemetous - Expanded ENT Exam Ear exam: Present: normal external inspection TM/Canal exam: Effusion: Right TM, Left TM Nose: Present: tender, drainage Mouth exam: Present: normal external inspection Teeth exam: Present: normal inspection Throat exam: normal inspection, uvula midline - Neck Neck exam: Present: full ROM, Supple. Absent: tenderness, meningismus, Posterior Lymphadenopathy, Anterior Lymphadenopathy - Respiratory Respiratory exam: Present: lungs clear equal bilaterally. Absent: respiratory distress, wheezes, rales, rhonchi, accessory muscle use - Cardiovascular Cardiovascular Exam: Present: regular rate, normal rhythm, normal heart sounds. Absent: murmur, rubs, gallop, clicks - GI/Abdominal GI/Abdominal exam: Present: soft, non tender, normal bowel sounds. Absent: guarding, rebound, rigid , mass, bruit - Extremities Exam Extremities exam: Present: normal inspection, full ROM, neurovascularly intact - Back Exam Back exam: Present: normal inspection, full ROM. Absent: tenderness - Neurological Exam Neurological exam: Present: alert, oriented X3, CN II-XII intact - Expanded Neurological Exam Patient oriented to: Present: person, place, time Speech: Present: fluid speech - Psychiatric Psychiatric exam: Present: normal affect, normal mood - Skin Skin Color: Present: Normal, [place] Skin exam: Present: warm, dry - Expanded Skin Exam Type of lesion: Absent: rash - Vital Signs Vital Signs 08/06/17 16:01 Temperature 98 F Pulse Rate [VS 106 H Machine] Respiratory 20 Rate Blood Pressure 166/103 H [Right Arm Sitting] O2 Sat by Pulse 98 Oximetry(%) MDM URI - Lab Data Orders: Fluticasone Propionate [Flonase] 2 sprays NS DAILY #1 spray.susp 08/06/17 [Rx] Loratadine [Claritin 10 mg Tablet] 10 mg PO DAILY #20 tablet 08/06/17 [Rx] Sulfamethoxazole/Trimethoprim [Bactrim Ds Tablet] 1 each PO BID #20 tablet 08/06/17 [Rx] - Differential Diagnosis MDM URI: Considered: Allergic rhinitis, Sinusitis, URI, Other, Influenza A, Influenza B, Influenza H1N1, Otitis media, Peritonsillar abscess, Phyaryngitis, Pneumonia, Pertussis ED Discharge Summary - Discharge Data Clinical Impression: Acute sinusitis, Bilateral serous otitis media Condition: Good Disposition: 01 HOME, SELF-CARE Admit is Medically Necessary, Anticipated Stay >2 Midnights:: No Referrals: PHYSICIAN,UNASSIGNED [Primary Care Provider] - TORITO KNUTSON [MEDICAL DOCTOR] - Additional Instructions: FOLLOW UP WITH YOUR PCP OR THE BACK UP PHYSICIAN LISTED ON HOME GOING INSTRUCTIONS IF NOT FEELING BETTER IN 3 DAYS RETURN TO THE ED IF SYMPTOMS WORSEN OR ANY OTHER CONCERNS At least one of your blood pressure readings in the Emergency Department visit today were above 120 /80. You need to follow up with your Primary Care Physician/Family Doctor within the next week about your blood pressure. OARRS Report Reviewed: No Home Medications: Ambulatory Orders Medication Instructions Recorded Dextromethorphan HBr [Delsym] 5 ml PO BID PRN #90 ml 08/06/17 Fluticasone Propionate [Flonase] 2 sprays NS DAILY #1 spray.susp 08/06/17 Loratadine [Claritin 10 mg Tablet] 10 mg PO DAILY #20 tablet 08/06/17 Sulfamethoxazole/Trimethoprim 1 each PO BID #20 tablet 08/06/17 [Bactrim Ds Tablet] Home medications and allergies reviewed: Yes Time Seen by Provider: 08/06/17 16:03 Patient seen by Midlevel: Independently - Consultation I saw and examined the patient: Yes Nurses Notes Reviewed and Agreed With?: Yes - Dictation Amendments/Documentation: HoozOn Document Only Electronically Generated By: JESICA SANDERS PA-C Generated Date/Time: 08/06/17 1611 Electronically Signed By: JESICA MATTA PA-C Signed Date/Time 08/06/17 1710 Co Signed Electronically By: <Electronically signed by CONNIE LUKE MD> <Electronically signed by CONNIE LUKE MD> Co Signed Date/Time: 08/09/17 0714 08/09/17 0714 CC: PHYSICIAN, UNASSIGNED ALLERGIES ALLERGIES DATE TYPE / CODE NAME / CODE REACTION SEVERITY SOURCE Drug ketorolac Rash Unknown [place] 8 Allergy/444416903( tromethamine/F000 [facility] SNOMED CT) 139755(RXNORM) Hospital Repository Drug codeine/Q07724256 Rash Unknown [place] 8 Allergy/012685382( 0(RXNORM) [facility] SNOMED CT) Hospital Repository Drug adhesive/B5649911 Rash Unknown [place] 8 Allergy/121172459( 45(RXNORM) [facility] SNOMED CT) Hospital Repository Drug tramadol/E2695967 Rash Unknown [place] 8 Allergy/362225682( 80(RXNORM) [facility] SNOMED CT) Hospital Repository Drug amantadine/R05268 Rash Unknown [place] 8 Allergy/693658294( 4663(RXNORM) [facility] SNOMED CT) Hospital Repository Drug shellfish Anaphylaxis Unknown [place] 8 Allergy/425372576( derived/Z95443759 [facility] SNOMED CT) 4(RXNORM) Hospital Repository Drug amantadine/U20772 UNKNOWN [place] 8 Allergy/870720497( 4663(RXNORM) [facility] SNOMED CT) [facility] Repository DRUG CODEINE ITCHING [place] 5 INGREDI/147921883( Clinic Main SNOMED [facility]) [place] Repository DRUG KETOROLAC RASH [place] 5 INGREDI/544470616( TROMETHAMINE Clinic Main SNOMED CT) [place] Repository DRUG TRAMADOL RASH [place] 5 INGREDI/583529983( Clinic Main SNOMED CT) [place] Repository Chemical/653868734 ADHESIVE TAPE RASH Hines 8 (SNOMED CT) (ROSINS) Clinic Main [place] Repository DRUG AMANTADINE INTOLERANCE [place] 5 INGREDI/047764366( Clinic Main SNOMED CT) [place] Repository Drug CODEINE/79953019( Moderate Fabio Pomerene Allergy/257506992( RXNORM) (Severity [facility]) Modifier) [facility] (Qualifier Repository Value) Drug AMANTADINE/082036 doesnt work Moderate Fabio Pomerene Allergy/098275485( 09(RXNORM) (Severity [facility] SNOMED CT) Modifier) [facility] (Qualifier Repository Value) Drug TRAMADOL/18755410 RASH Moderate Fabio Pomerene Allergy/333571229( (RXNORM) (Severity [facility] SNOMED CT) Modifier) Hospital (Qualifier Repository Value) Environmental ADHESIVE Moderate Afbio Pomerene Allergy/970133583( (Severity [facility] SNOMED CT) Modifier) Hospital (Qualifier Repository Value) Food SEAFOOD Moderate Fabio Pomerene Allergy/264065975( (Severity [facility] SNOMED CT) Modifier) Hospital (Qualifier Repository Value) Drug TORADOL/47936543( RASH Moderate Fabio Pomerene Allergy/478610626( RXNORM) (Severity [facility] SNOMED CT) Modifier) Hospital (Qualifier Repository Value) ENCOUNTERS ENCOUNTERS ADMIT/DISCHARGE ACCOUNT NUMBER ADMITTING ENCOUNTER LOCATION SOURCE CLASS 07/19/2018 [id number] SEMAJ, Ambulatory [facility] TORITO V System Repository 07/18/2018/07/18/19 [id number] SEMAJ, [facility] 19 [place] ilding:GALSU System R Repository 07/17/2018 [id number] Ambulatory [facility] ding:LAB Repository 07/13/2018/07/13/19 [id number] SEM[facility] [place]:GALSU System R Repository 07/11/2018/07/11/19 [id number] [facility] 19 [place] ilding:GALSU System R Repository 06/20/2018/06/20/20 [id number] [facility] [place]ing:GALSU System R Repository 06/15/2018/06/15/20 [id number] TOILIA, [facility] 18 STEFF ilding:GALUR System G Repository 04/30/2018/04/30/20 [id number] Emergency [address] ding:ED Repository 04/27/2018/04/27/[id number] VENESSA Emergency Buildin[address] [place] [address] Room: ERBed: [facility] Repository 04/03/2018/04/03/20 [id number] Ambulatory [address] Repository 02/12/2018/02/13/20 [id number] Emergency [place] ding:ED Repository 01/25/2018/01/26/20 [id number] Emergency [address] ding:ED Repository 01/06/2018/01/07/20 [id number] Emergency CHBuilding:E [place] [facility] Repository 12/30/2017/12/31/19 [id number] Emergency [place]o[address] ding:ED Repository 11/15/2017/11/16/19 [id number] Emergency CHBuilding:E [place] [facility] Repository 09/23/2017/09/24/19 [id number] Ambulatory [address] Repository 08/25/2017/08/26/19 [id number] EDSON, Emergency [address] [place] [address] Room: ERBed: [facility] Repository 08/23/2017/08/23/19 [id number] Emergency [address] ding:ED Repository 08/22/2017/08/22/19 [id number] Emergency CHBuilding:E [place] [address] [place] [address] Repository 08/09/2017/08/09/19 [id number] Emergency [address] ding:ED Repository 08/06/2017/08/06/19 [id number] Emergency CHBuilding:E [place] [facility] Repository PAYERS PAYERS ENCOUNTER GUARANTOR PAYER SUBSCRIBER SOURCE 07/19/2018 MARY LOU WILLINGHAMH [facility]: [facility] [id number] [facility] [id number] Repository [address] Number: [address] [place] [address] [id number] [address] [place] [id number]: [phone]) Date:8625-61-73Hscr 49050 [phone] () Name:[facility] [place] [address]KJ: 07/17/2018 MARY LOU [facility]HAMBroad[facility] Center[facility] FA1939 Insurance:PARAMOUNT MIKHAIL JRDOB: [facility] [id number] of New Mexico Hospitals [address]Lpc: Number: Repository [id number] () Date:9797-54-10UY [address] [address]PU: 07/17/2018 Secondary NOT GIVENUNK [place] Insurance:SELF PAY [facility] Number: Effective Repository Date:2018-07-17 04/30/2018 MARY LOU L Primary MARY LOU L [place] MIKHAIL [id number] Insurance:PARAMOUNT IMKHAIL JRDOB: [place] [address] [id number] of New Mexico Hospitals [address]23[address]Kvx: Number: Repository [id number] () Date:8313-30-61HE[address] [address]GV: 04/30/2018 Secondary NOT GIVENUNK [place] Insurance:SELF PAY [facility] Number: Effective Repository Date:2018-04-30 04/27/2018 MARY LOU JR Primary MARY LOU Abad ATHERTONDOB: Insurance:PARAMOUNT ATHERTONDOB: [facility] [id number] Repository [address] [place] [address] Number: [place] [id number]: [id number] Date:Plan Name: () 02/12/2018 MARY LOU L Primary MARY LOU L Jono MIKHAIL [id number] Insurance:PARAMOUNT MIKHAIL JRDOB: [address]JUSTINEWestbrook Medical Center [id number] of New Mexico Hospitals [address]Isb: Number: Repository [id number] () Date:2226-91-75PU[address] [address]ER: 02/12/2018 Secondary NOT GIVENUNK [place] Insurance:SELF PAY [facility] Number: Effective Repository Date:2018-02-12 01/25/2018 MARY LOU Marcial Primary MARY LOU Marcial Jono MIKHAIL [id number] Insurance:PARAMOUNT MIKHAIL JRDOB: [address] [id number] of New Mexico Hospitals [address]Vlj: Number: Repository [id number] () Date:2442-09-97XI [address] [address]NS: 01/25/2018 Secondary NOT GIVENUNK Jono Insurance:SELF PAY [facility] Number: Effective Repository Date:2018-01-25 01/06/2018 MARY LOU VICTORIA [facility]3705 Insurance:PARAMOUNTPol ATHERTONDOB: [facility] icy Number: [id number] [id number] Repository [address]Tfd: (567) Date:[address] [phone] () [place] [address]SZ: [phone]: [phone] (HP) 12/30/2017 MARY LOU Marcial Primary MARY LOU [place] MIKHAIL [id number] Insurance:PARAMOUNT MIKHAIL JRDOB: [address] [id number] of New Mexico Hospitals [address]Agi: Number: Repository [id number] () Date:8424-48-97DO [address] [address]LD: 12/30/2017 Secondary NOT GIVENUNK [place] Insurance:SELF PAY [facility] Number: Effective Repository Date:2017-12-30 11/15/2017 MARY LOU VICTORIA [facility]3705 Insurance:PARAMOUNTPol ATHERTONDOB: [facility] icy Number: [id number] [address] [id number] 5 [facility] Repository [address]Rsq: (902) Date:[address] [place] [address] [phone] () [place] [address]DX: [phone]: [phone] (HP) 08/25/2017 MARY LOU JR Primary MARY LOU Abad ATHERTONDOB: Insurance:PARAMOUNT ATHERTONDOB: [facility] [id number] [facility] [id number]PAT[address] Repository [address] [place] [address] Number: [address] [place] [id number]: [id number] [id number] Date:Plan Name: () 08/23/2017 Mary Lou L Primary MARY LOU L [facility] [id number] Insurance:PARAMOUNT MIKHAIL JRDOB: [address] [id number] of New Mexico Hospitals [address]Uqk: Number: Repository [id number] () Date:2164-79-62YP[address] [address]WJ: 08/23/2017 Secondary NOT GIVENUNK Jono Insurance:SELF PAY [facility] Number: Effective Repository Date:2017-08-23 08/22/2017 MARY LOU KESSLER Primary [facility]Mem[facility] CountyTON3705 Insurance:PARAMOUNTPol ATHERTONDOB: [facility] icy Number: [id number] [id number] 5 [facility] Repository [address]Ltz: [phone] Date:[address] [phone] () [place] [address]JT: [phone]: [phone] () 08/09/2017 MARY LOU L Primary MARY LOU L Jono [place] [id number] Insurance:[address] [address]Bpv: Number: Repository [id number] () Date:[id number] [place] [id number]: 08/09/2017 Secondary NOT GIVENUNK Jono Insurance:SELF PAY [facility] Number: Effective Repository Date:2017-08-09 08/06/2017 MARY LOU KESSLER Primary MARY LOU KESSLER [id number] [facility] icy Number: [id number] [address] [id number] [address] [place] [address] Repository [id number]: [phone] Date:[address] [place] [address] [phone] (HP) [place] [address]KE: [phone]: [phone] (HP)
== END ==
PROVIDERS: Referring Provider Anesthesiology Pain Medicine; Visit Provider Anesthesiology Pain Medicine
DX: F11.20 Opioid dependence, uncomplicated (principal)
CPT/HCPCS: 80307

== ENCOUNTER 2020-04-15 00:31 | Emergency (ER) | payer BC, SELFPAY ==
[2020-04-15 00:32] VITALS: BP 140/90; PULSE 114; RESP 18; TEMP 36.3; O2SAT 100; BMI 25.3
[2020-04-15 00:37] VITALS: BP 140/90; PULSE 114; RESP 18; TEMP 36.3; O2SAT 100
--- NOTE | 2020-04-15 01:01 | CT_ITS ---
STUDY: CT CHEST WITH CONTRAST REASON FOR EXAM: Male, 40 years old. Chest wall pain RADIATION DOSAGE (If Supplied By Facility): CTDIvol = ( 9.94 ) mGy, DLP = ( 393.91 ) mGycm TECHNIQUE: Transaxial imaging was performed following intravenous administration of IV 100mL Isovue-370. Individualized dose optimization techniques were used for this CT. COMPARISON: None. FINDINGS: No confluent airspace infiltrate. 5 mm pleural based nodule at the left anterior apex. Ground glass pleural based nodules at the right posterolateral lung base. Biapical pleural parenchymal scarring. No pleural effusion. No pneumothorax. Normal heart and pericardium. Shoddy mediastinal and hilar lymph nodes. Normal hilar regions. Normal enhanced pulmonary arteries. No central pulmonary embolism. Normal aorta arch and descending thoracic aorta. Normal osseous structures. There is no demonstrated abnormality of the visualized upper abdomen. CT/Chest WITH Contrast IMPRESSION: 1. Groundglass pleural-based nodules at the posterior lateral right lung base, potentially infectious or inflammatory in etiology. 2. 5 mm noncalcified pleural-based nodule at the left anterior apex. Electronically Signed: Jaime Hernandez MD at 2:47 EDT Tel , Service support ,
--- NOTE | 2020-04-15 01:01 | ED.VIS.GEN ---
History of Present Illness Chief Complaint: Chest Other Detail of Chief Complaint: Chest wall infection Informant: Patient Narrative: Patient presents with increased right-sided chest pain secondary to chronic infection. 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 The most recent surgery was in August 2018. He had 2 MRIs performed this year that showed osteomyelitis in 4 of the ribs. He was treated for this in [place] and has not established doctors here locally after moving. Patient states he has not been on antibiotics since the end of 2018. He states the wound site continues to drain chronically. He has not had any drainage out of the wound since yesterday and noted increased pain today. He denies fever or chills. - Past Medical History (1) Hepatitis C Status: Chronic (2) Anxiety and depression Status: Chronic Past Medical History - Allergies and Home Meds Allergies/Adverse Reactions: Allergies adhesive Allergy (Verified 04/30/18 14:17) Rash codeine Allergy (Verified 04/30/18 14:17) Rash ketorolac tromethamine [From Toradol] Allergy (Verified 04/30/18 14:17) Rash shellfish derived Allergy (Verified 04/30/18 14:17) Anaphylaxis tramadol Allergy (Verified 04/30/18 14:17) Rash amantadine Adverse Reaction (Verified 04/30/18 14:17) Rash Primary Care Physician: [facility] Doctor,Out of [NON-STAFF] - Prior records reviewed: Yes Smoking Status: Current every day smoker Review of Systems General: Denies: Chills, Fever Eyes: Denies: Visual changes - bilaterally ENT: Denies: Bilateral ear pain Cardiovascular: Reports: Chest pain Respiratory: Denies: Dyspnea, Cough Gastrointestinal: Denies: Abdominal pain Genitourinary: Denies: Dysuria Musculoskeletal: Denies: Swelling, Extremity Pain Skin: Reports: Wounds. Denies: Rash Neurological: Denies: Headache Hematologic: Denies: Easy bruising, Easy bleeding Allergy: Denies: Uticaria Physical Exam Vital Signs/Narrative: Vital Signs Temp Pulse Resp BP Pulse Ox 04/15/20 00:37 97.3 F L 114 H 18 140/90 H 100 04/15/20 00:32 97.3 F L 114 H 18 140/90 H 100 Inital Vital Signs reviewed: Yes General: Well nourished, Well developed Head: Normocephalic ENT: Moist mucous membranes Neck: Supple Cardiovascular: Regular rate, Regular rhythm Respiratory: No distress, CTA bilaterally Abdomen: Soft, Nontender Skin: - - Closed wound to the right anterior chest wall. No palpable fluctuance around the wound. No sign of cellulitis. Neurological: Alert, Oriented x3 Psychological: Normal affect Diagnostic/Tx/Re-eval Impressions Chest CT 04/15/20 01:01 IMPRESSION: 1. Groundglass pleural-based nodules at the posterior lateral right lung base, potentially infectious or inflammatory in etiology. 2. 5 mm noncalcified pleural-based nodule at the left anterior apex. Electronically Signed: Jaime Hernandez MD at 2:47 EDT Tel , Service support , 04/15/20 01:01 CT Chest [Chest WITH Contrast] [CT] Stat Laboratory Results 04/15/20 04/15/20 01:35 01:35 WBC 10.8 RBC 5.26 Hgb 13.9 Hct 43.7 MCV 83.1 MCH 26.4 L MCHC 31.8 L RDW Std Deviation 47.5 H RDW Coeff of Mathew 15.8 H Plt Count 322 MPV 9.4 Immature Gran % (Auto) 0.400 Neut % (Auto) 62.9 Lymph % (Auto) 27.7 Mcmullen % (Auto) 6.9 Eos % (Auto) 1.7 Baso % (Auto) 0.4 Absolute Neuts (auto) 6.8 Absolute Lymphs (auto) 2.98 Nucleated RBC % 0 Sodium 140 Potassium 3.5 Chloride 107 Carbon Dioxide 30.0 Anion Gap 3 L BUN 5 L Creatinine 1.01 Estim Creat Clear Calc 100.39 Est GFR (MDRD) Af Amer 105 Est GFR (MDRD) Non-Af 87 BUN/Creatinine Ratio 5.0 L Glucose 108 H Calcium 9.2 - Medical Decision Making Patient was given oxycodone here for pain. Test results are discussed with him. Although he had been told that he had osteomyelitis of multiple ribs there is no evidence of bony destruction on CT scan. I did advise him that an MRI is a much more sensitive test for this. He will be treated with Bactrim and Keflex to ensure no development of focal abscess as he states the wound that chronically drains is now closed off. I will refer him to infectious disease for follow-up and further evaluation. ED Disposition - Plan for ED Patient: Disposition: Home or Assisted Living Diagnosis: Cutaneous abscess Instructions: ED Abscess Antibiotic Treatment Only Prescriptions: Smz/Tmp Ds [Bactrim Ds] 1 tablet PO BID #20 tablet Cephalexin [Keflex] 500 mg PO Q6 #40 capsule Referrals: Mansoor Lubin MD [STAFF PHYSICIAN] - As soon as possible
[2020-04-15] MEDS: oxyCODONE 5 MG Tablet 10 MG PO (01:20)
[2020-04-15 01:39] LABS: Absolute Lymphocyte Count 2.98 X10^3/uL (0.83-4.51); Absolute Neutrophil Count 6.8 X10^3/uL (2.0-7.7); Basophil# 0.04 X10^3/uL; Basophil% 0.4 % (0-1); Eosinophil# 0.18 X10^3/uL; Eosinophils% 1.7 % (0-5); Hematocrit 43.7 % (40-54); Hemoglobin 13.9 g/dL (13.0-16.5); Lymphocyte # 2.98 X10^3/ul (4.0); Lymphocyte % 27.7 % (19-41); Mean Corp Hgb Conc 31.8 g/dL (32-36); Mean Corpuscular Hgb 26.4 pg (27.0-32.0); Mean Corpuscular Volume 83.1 fL (80-94); Mean Platelet Vol. 9.4 fl (6.2-12.0); Monocyte# 0.74 X10^3/uL; Monocyte% 6.9 % (0-10); NRBC Flagged by Analyzer 0 % (0-5); Neutrophil # 6.78 X10^3/uL (2.7-7.7); Neutrophil % 62.9 % (47-70); Platelet Count 322 K/mm3 (150-450); RBC Distribution Width CV 15.8 % (11.6-14.6); RBC Distribution Width SD 47.5 fl (35.1-43.9); Red Blood Count 5.26 M/mm3 (4.6-6.2); White Blood Count 10.8 K/mm3 (4.4-11.0)
[2020-04-15 01:53] LABS: Anion Gap 3 (5-15); BUN 5 mg/dL (7-18); Calcium,Total 9.2 mg/dL (8.5-10.1); Chloride 107 mmol/L (98-107); Creatinine, Serum 1.01 mg/dL (0.70-1.30); EST Glomerular Filtration Rate 87 mL/min (>60); Est Glom Filt Rate - Afr Amer 105 mL/min (>60); Estimated Creatinine Clearance 100.39 ml/min; Glucose 108 mg/dL (74-106); Potassium 3.5 mmol/L (3.5-5.1); Sodium Level 140 mmol/L (136-145)
[2020-04-15 02:59] VITALS: BP 121/74; PULSE 74; RESP 17; O2SAT 98
== END 2020-04-15 03:00 | disposition home or self-care (01) ==
PROVIDERS: Emergency Provider Emergency Medicine
DX: L02.213 Cutaneous abscess of chest wall (principal); F17.200 Nicotine dependence, unspecified, uncomplicated
CPT/HCPCS: 71260; 80048; 85025; 99285; Q9967; A4216

== ENCOUNTER 2020-04-17 00:52 | Emergency (ER) | payer BC, SELFPAY ==
[2020-04-17 00:53] VITALS: BP 129/89; PULSE 108; RESP 16; TEMP 36.9; O2SAT 98; BMI 25.4
[2020-04-17] MEDS: HYDROcodone Bitartrate/Apap 5/325 Tablet PO (01:34)
--- NOTE | 2020-04-17 02:02 | ED.VIS.GEN ---
History of Present Illness Chief Complaint: Chest Other Informant: Patient Narrative: Patient is a 40-year-old male who presents to the emergency department for acute on chronic right-sided rib pain. He has a diagnosis of osteomyelitis of 4 ribs on the right side. He has chronic pain from this. He previously received 20 mg of oxycodone from his PCP but he has moved from [place] and no longer has a PCP. He was seen for the same complaint in the ED 2 days ago. At that time he had basic lab work done along with CT scan of the chest. He currently rates his rib pain as 8 out of 10. He has a cyst in the area which chronically drains. At that time it was not draining so he was placed on antibiotics. He is currently on Bactrim and Keflex. Cyst has started to drain again. He was given referral for infectious disease and he has an appointment next week with them. He denies any fevers or chills. No pain elsewhere in the chest. No shortness of breath. His other concern was he was exposed to somebody with coronavirus. He states that one of his coworkers tested positive. He denies having any symptoms but wanted to be checked. He denies any cough, cold, congestion. No nausea/vomiting. No diarrhea. Past Medical History - Allergies and Home Meds Allergies/Adverse Reactions: Allergies adhesive Allergy (Verified 04/17/20 00:55) Rash codeine Allergy (Verified 04/17/20 00:55) Rash ketorolac tromethamine [From Toradol] Allergy (Verified 04/17/20 00:55) Rash shellfish derived Allergy (Verified 04/17/20 00:55) Anaphylaxis tramadol Allergy (Verified 04/17/20 00:55) Rash amantadine Adverse Reaction (Verified 04/17/20 00:55) Rash Primary Care Physician: Care Physician,No Primary [Primary Care Provider] - Peg Romero DO [[facility]] - As soon as possible Prior records reviewed: Yes Past Medical History: - - Osteomyelitis Smoking Status: Current every day smoker Review of Systems All systems negative except as indicated General: Denies: Chills, Fever, Sweats Eyes: Denies: Visual changes - bilaterally, Diplopia ENT: Denies: Rhinorrhea, Sore throat Cardiovascular: Reports: Chest pain - Chest wall, right side. Denies: Palpitations Respiratory: Denies: Dyspnea, Cough, Dyspnea on exertion Gastrointestinal: Denies: Abdominal pain, Nausea, Vomiting, Diarrhea Genitourinary: Denies: Dysuria, Hematuria, Frequency Musculoskeletal: Denies: Back pain, Extremity Pain Skin: Reports: Abscess. Denies: Rash, Wounds Neurological: Denies: Headache, Weakness, Numbness Physical Exam Vital Signs/Narrative: Vital Signs Temp Pulse Resp BP Pulse Ox 04/17/20 00:53 98.5 F 108 H 16 129/89 H 98 General: Well nourished, Well developed, No Acute Distress Head: Normocephalic, Atraumatic Eyes: Perrl, EOMI ENT: Moist mucous membranes, No rhinorrhea Neck: Supple, Nontender Cardiovascular: Regular rate, Regular rhythm, No murmurs Respiratory: No distress, CTA bilaterally, Chest tenderness - Right-sided ribs Abdomen: Soft, Nontender, Nondistended, Normal bowel sounds Back: Nontender, Normal Inspection Extremities: Nontender, No edema. Negative for: Calf Tenderness Skin: Normal color, No rash, - - There is a ulceration present on right anterior chest wall with no drainage currently present. No surrounding cellulitis present. Neurological: Alert, Normal Strength, Normal Sensation Psychological: Normal affect, Normal Mood Diagnostic/Tx/Re-eval - Medical Decision Making Patient presents to the ED for acute on chronic right-sided rib pain. Patient is requesting a prescription for oxycodone but I told him I cannot do that from the emergency department. He will need a PCP and pain management referral. Did give him a single dose of [place] here in the emergency department. He did have a full work-up of this done [address] scan. He has had previous MRIs before in the past. He denies any new changes with this. At this time do not feel any repeat work-up is necessary at this time. He also wanted tested for coronavirus due to exposure although he does not have any symptoms. We will send this as an outpatient. At this time will make a referral for PCP as he does not have one in the area. He has an appointment with ID next week which she is to keep. Warning signs and symptoms for which to return to the ED are reviewed with him. He understands and is agreeable this plan. Patient discharged home in stable condition. All questions answered. Patient is requesting a work excuse for this past evening and will be provided one. ED Disposition - Plan for ED Patient: Disposition: Home or Assisted Living Diagnosis: Rib pain on right side, Exposure to COVID-19 virus Instructions: ED Chest Pain NonCardiac Referrals: Care Physician,No Primary [Primary Care Provider] - Peg Romero, DO [[facility]] - As soon as possible
[2020-04-17 02:20] VITALS: BP 131/79; PULSE 94; RESP 18; O2SAT 99
== END 2020-04-17 02:21 | disposition home or self-care (01) ==
PROVIDERS: Emergency Provider Emergency Medicine
DX: R07.81 Pleurodynia (principal); Z20.828 Contact with and (suspected) exposure to other viral communicable diseases; F17.200 Nicotine dependence, unspecified, uncomplicated
CPT/HCPCS: 87635; U0003

== ENCOUNTER 2021-04-25 16:26 | Emergency (ER) | payer SELFPAY ==
[2021-04-25 16:27] VITALS: BP 133/95; PULSE 121; RESP 24; TEMP 36; O2SAT 100; BMI 24.3
--- NOTE | 2021-04-25 16:50 | RAD_ITS ---
STUDY: X-RAY - UNILATERAL RIBS ( RIGHT ) WITH CHEST REASON FOR EXAM: Male, 41 years old. rib pain TECHNIQUE - RIBS: 4 view(s) of the ribs. TECHNIQUE - CHEST: Frontal view COMPARISON: None. FINDINGS - RIBS: Normal visualized ribs without a demonstrated fracture. FINDINGS - CHEST: The lungs are expanded. Mild interstitial prominence versus small right pleural effusion. Apical pleural thickening bilaterally. Normal size heart. Normal mediastinum and anders. Normal visualized pulmonary arteries. Normal visualized aortic arch and descending thoracic aorta. Normal visualized thoracic spine. Normal visualized ribs, clavicles, and shoulders. There is no demonstrated abnormality of the visualized soft tissue structures of the upper abdomen. RAD/Ribs Uni Min 3V w/PA Chest IMPRESSION: RIBS: Normal x-ray examination of the ribs. CHEST: Mild interstitial prominence versus small right pleural effusion. Apical pleural thickening bilaterally. Electronically Signed: Jed Clemente DO at 18:33 EDT Tel [phone], Service support ,
--- NOTE | 2021-04-25 17:31 | ED.VIS.DYS ---
HPI History of Present Illness Chief Complaint: Shortness of Breath Narrative Narrative: Patient presented with right-sided posterior rib pain. 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 Patient definitely feels it is worse with twisting. He states it hurts when he takes a deep breath. Patient denies any fever, chills, cough, body aches. He does state he has a history of MRSA pneumonia distantly. Patient denies any cardiac history. No history of DVT/PE and no risk factors. [facility] Medical History Acute biliary pancreatitis Home Medications acetaminophen 500 mg PO Q6H PRN PRN 04/15/20 [History Last Taken Unknown] cephalexin 500 mg PO Q6 #40 cap 04/15/20 [Rx Last Taken Unknown] ibuprofen 800 mg PO TID PRN PRN 04/15/20 [History Last Taken Unknown] sulfamethoxazole-trimethoprim 1 tab PO BID #20 tab 04/15/20 [Rx Last Taken Unknown] cyclobenzaprine 10 mg PO TID PRN #20 tablet 04/25/21 [Rx Last Taken Unknown] naproxen [Naprosyn] 500 mg PO BID PRN #20 tab 04/25/21 [Rx Last Taken Unknown] Allergy/AdvReac Type Severity Reaction Status Date / Time adhesive Allergy Rash Verified 04/25/21 16:29 codeine Allergy Rash Verified 04/25/21 16:29 ketorolac tromethamine Allergy Rash Verified 04/25/21 16:29 [From Toradol] shellfish derived Allergy Anaphylaxis Verified 04/25/21 16:29 tramadol Allergy Rash Verified 04/25/21 16:29 amantadine AdvReac Rash Verified 04/25/21 16:29 Surgical History History of appendectomy History of cholecystectomy Social History Smoking Status: Current every day smoker tobacco type: cigarettes ROS ROS ED Constitutional Constitutional ED: Denies chills or fever(s) Eyes Eyes: Denies blurry vision or diplopia ENT ENT ED: Denies rhinorrhea or sore throat Cardiovascular Cardiovascular: Denies chest pain or palpitations Respiratory/Chest Respiratory/Chest: Reports dyspnea and other Details: Right posterior rib pain Gastrointestinal Gastrointestinal: Denies abdominal pain, nausea or vomiting Genitourinary Genitourinary ED: Denies dysuria or hematuria Musculoskeletal Musculoskeletal: Denies arthralgias or myalgias Integumentary Denies Abrasions or rash Neurologic Neurologic: Denies headache(s) or paresthesias EXAM Physical Exam Const Vital Signs: 04/25/21 16:27 04/25/21 17:08 04/25/21 18:36 Temperature 96.8 F L Temperature Source Temporal Pulse Rate 121 H 100 Respiratory Rate 24 H 18 Respiratory Effort Normal Respiratory Depth Normal Respiratory Pattern Normal Blood Pressure 133/95 H 103/71 Blood Pressure Mean 107 81 Pulse Ox 100 96 Oxygen Delivery Method Room Air Room Air Positive well nourished General Appearance ED: NAD; Negative for pallor HEENT Reports moist mucous membranes atraumatic Eyes PERRL and EOMs intact bilaterally Chest Wall Chest Narrative: Tenderness palpation right posterior ribs in the posterior axillary line. No crepitance, deformity, bruising. Equal symmetric breath sounds and chest wall rise. Resp normal respiratory effort and clear to auscultation bilaterally Neuro oriented x3 Sensorium / Orientation: alert and oriented to person Psych mental status grossly normal Thought Process: normal thought process Skin General Skin Exam: Negative for jaundice or pallor MDM MDM MDM Narrative Medical decision making narrative: Patient presenting with right rib pain. It is nontraumatic in nature. 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 Patient states that it is painful when he twists his trunk. He does subjectively state that he is short of breath but it is more of a rib pain. He does not have any history of PE or DVT. He does not have any cardiac risk factors. On exam his lungs are clear to auscultation. Chest x-ray on my interpretation shows thickening at the right lung base. When looking at the CT from last year about the same time he has had some thickening in that area on CAT scan as well as the apical thickening which is not new. Patient is not hypoxic, tachypneic, or having any cough or cold symptoms. I believe this is old. Patient himself feels that this is a muscle pull from working. I will give him Naprosyn in the ER and given prescription for Naprosyn and cyclobenzaprine for home. He is given return precautions. Impression: 1. Muscle strain Radiography Diagnostic Testing: Clinical Impression(s) from Imaging Studies Ribs w/Chest X-Ray 04/25/21 16:50 IMPRESSION: RIBS: Normal x-ray examination of the ribs. CHEST: Mild interstitial prominence versus small right pleural effusion. Apical pleural thickening bilaterally. Electronically Signed: Jed Clemente DO at 18:33 EDT Tel [phone], Service support , Discharge Plan Triage Chief Complaint: Shortness of Breath ED Provider: Tenzin Ryan Dx/Rx/DC Orders Instructions: ED Muscle Spasm Prescriptions: New naproxen [Naprosyn] 500 mg tablet 500 mg PO BID PRN (Reason: pain) Qty: 20 RF: 0 cyclobenzaprine 10 mg tablet 10 mg PO TID PRN (Reason: Muscle Spasm) Qty: 20 RF: 0 No Action ibuprofen 800 MG tablet 800 mg PO TID PRN PRN (Reason: Pain 1-10 Or Fever) RF: 0 acetaminophen 500 MG tablet 500 mg PO Q6H PRN PRN (Reason: Pain 1-10 Or Fever) RF: 0 sulfamethoxazole-trimethoprim 1 TABLET tablet 1 tab PO BID Qty: 20 RF: 0 cephalexin 500 MG capsule 500 mg PO Q6 Qty: 40 RF: 0 Primary Care Provider: Care Physician,No Primary Referrals: Antoni Seymour MD [STAFF PHYSICIAN] - As Needed Care Physician,No Primary [Primary Care Provider] - Disposition Disposition: Home, Self Care
[2021-04-25] MEDS: Naproxen 500 MG Tablet PO (17:48)
[2021-04-25 18:36] VITALS: BP 103/71; PULSE 100; RESP 18; O2SAT 96
[2021-04-25 18:50] VITALS: BP 103/71; PULSE 100; RESP 18; O2SAT 96
== END 2021-04-25 18:57 | disposition home or self-care (01) ==
PROVIDERS: Emergency Provider Student in an Organized Health Care Education/Training Program
DX: S29.011A Strain of muscle and tendon of front wall of thorax, initial encounter (principal); F17.210 Nicotine dependence, cigarettes, uncomplicated; X58.XXXA Exposure to other specified factors, initial encounter; Y93.89 Activity, other specified; Y92.89 Other specified places as the place of occurrence of the external cause; Y99.8 Other external cause status
CPT/HCPCS: 71101; 99283

== ENCOUNTER 2021-06-02 19:30 | Emergency (ER) | payer SELFPAY ==
[2021-06-02 19:31] VITALS: BP 129/82; PULSE 95; RESP 18; TEMP 36.2; O2SAT 96; BMI 24.9
--- NOTE | 2021-06-02 19:35 | RAD_ITS ---
STUDY: X-RAY - RIGHT WRIST REASON FOR EXAM: Male, 41 years old. WOUND TO R WRIST X 3 DAYS. BASE OF 1ST METACARPAL. UNKNOWN SCRATCH/PUNCTURE. HX OF WRIST SURGERY WITH A SCREW. +WARMTH AND PAIN. NO DRAINAGE. TECHNIQUE: 3 view(s) of the wrist were obtained. COMPARISON: None. FINDINGS: Normal visualized distal radius and ulna. There is mild degenerative arthrosis of the radiocarpal articulation. Normal distal radioulnar articulation. 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 A threaded screw is present through the central aspect of the scaphoid fracture fragments. Normal remaining carpal bones. Normal carpal articulations. Normal carpometacarpal articulation of the thumb. Normal second through fifth carpometacarpal articulations. Normal visualized metacarpal bones. The soft tissue structures are unremarkable. RAD/Wrist min 3 Views IMPRESSION: 1. 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 A threaded screw is present through the central aspect of the scaphoid fracture fragments. Electronically Signed: Allan Palomino MD at 20:31 EST , Service support ,
--- NOTE | 2021-06-02 19:53 | EDS_ITS ---
HPI History of Present Illness Chief Complaint: Wound Detail of Chief Complaint: Pain, redness and swelling over the first metacarpal. Informant: patient Onset/Context/Timing Onset: Yesterday Context: Sudden Onset Timing: Continuous Quality: Swelling, pain and redness Location: Over the first metacarpal bone right hand Current Severity: Mild Maximum Severity: Moderate Worsened by: Use of the right hand Relieved by: Rest Associated Symptoms Associated Symptoms: No constitutional symptoms and see HPI Narrative Narrative: Patient is a 41-year-old male who had open reduction internal fixation of the scaphoid fracture in 2009. He presents because of redness, pain and swelling over the first metacarpal of his right hand. He denies fever, chills night sweats. He denies history rheumatic fever, heart murmur, SBE, IV drug use or being immune suppressed. Of note he has history hepatitis C. He denies any other symptoms. Prior similar symptoms: No Recent Illness/Hospitalization: No PFSH PFSH Medical History Acute biliary pancreatitis Home Medications doxycycline monohydrate 100 mg PO BID #10 capsule 06/02/21 [Rx Last Taken Unknown] Allergy/AdvReac Type Severity Reaction Status Date / Time adhesive Allergy Rash Verified 04/25/21 16:29 codeine Allergy Rash Verified 04/25/21 16:29 ketorolac tromethamine Allergy Rash Verified 04/25/21 16:29 [From Toradol] shellfish derived Allergy Anaphylaxis Verified 04/25/21 16:29 tramadol Allergy Rash Verified 04/25/21 16:29 amantadine AdvReac Rash Verified 04/25/21 16:29 Surgical History History of appendectomy History of cholecystectomy Social History (Updated 06/02/21 @ 19:[address] Oswaldo Murphy MD) household members: none Smoking Status: Current every day smoker tobacco type: cigarettes substance use type: does not use ROS ROS ED Constitutional Constitutional ED: Denies chills, fever(s), subjective or sweats Eyes Eyes: Denies blurry vision or change in vision ENT ENT ED: Denies ear pain, rhinorrhea or sore throat Cardiovascular Cardiovascular: Denies chest pain, palpitations or racing heartbeat Respiratory/Chest Respiratory/Chest: Denies cough, dyspnea or dyspnea on exertion Gastrointestinal Gastrointestinal: Denies diarrhea, nausea or vomiting Musculoskeletal Musculoskeletal: Denies arthralgias, back pain, myalgias or neck pain Integumentary Reports Abrasions and rash Neurologic Neurologic: Denies paresthesias or weakness Hematologic/Lymphatic Hematologic/Lymphatic: Denies anemia, easy bleeding or easy bruising EXAM Physical Exam Const Vital Signs: 06/02/21 19:31 Temperature 97.2 F L Temperature Source Temporal Pulse Rate 95 Respiratory Rate 18 Blood Pressure 129/82 H Blood Pressure Mean 97 Pulse Ox 96 Oxygen Delivery Method Room Air Positive well nourished and well developed General Appearance ED: well developed and NAD; Negative for cyanotic or diaphoretic HEENT Reports moist mucous membranes HEENT Narrative: Ears normal. Nares patent. Negative for trauma or tenderness Eyes PERRL and EOMs intact bilaterally General Eye ED: Negative for pale conjunctiva or scleral icterus Neck no lymphadenopathy, supple and no JVD Resp normal respiratory effort and clear to auscultation bilaterally Cardio regular rate, regular rhythm, S1 normal heart sound, S2 normal heart sound and no murmurs GI normal to inspection, nondistended, normoactive bowel sounds, non-tender and non-distended; Negative for hepatosplenomegaly Palpation: soft Skin No no rashes or lesions noted and no wounds Skin Narrative: Cellulitis with abscess right hand over the first metacarpal bone. There is no lymphangitis. There is no epitrochlear or axillar lymphadenopathy. There is erythema, warmth and induration. There is also fluctuance. General Skin Exam: Negative for jaundice Rashes: rashes noted MDM MDM MDM Narrative Medical decision making narrative: And abscess. Since he had prior surgery x- ray was obtained. Radiography Chest X-Ray - ED: Read by ED Physician (Three-view x-ray of the wrist was interpreted by me at 1951 as remarkable for soft tissue swelling. Screw noted scaphoid. No other abnormalities noted.) Procedures Other Procedures Procedure(s): I&D abscess right hand/wrist. Patient was consented for I&D of abscess. He was explained risk benefits. He was given after and asked questions. None were asked. Patient was prepped draped sterile manner. The area was Nestabs without lidocaine. Using a 15 blade a 1 cm incision was made. There was free flow of purulent material. Blunt dissection was undertaken with more purulent material noted. Cavity was irrigated. Wick was placed. Patient was referred to Dr. Levon Ambrocio for follow-up. He received first dose of antibiotic in the emergency department and discharged with antibiotics since there is cellulitis. Discharge Plan Triage Chief Complaint: Wound ED Provider: Oswaldo Murphy Dx/Rx/DC Orders Clinical Impression: Cellulitis and abscess of hand Instructions: ED Abscess Incision And Drainage, ED Cellulitis Prescriptions: New doxycycline monohydrate 100 MG capsule 100 mg PO BID Qty: 10 RF: 0 Primary Care Provider: Care Physician,No Primary Referrals: Layton Ambrocio MD [STAFF PHYSICIAN] - 2 Days for wound check Care Physician,No Primary [Primary Care Provider] - Disposition Disposition: Home, Self Care
[2021-06-02] MEDS: Lidocaine 1% (20 ml mdv) 20 ML Vial INFILT (19:54)
[2021-06-02] MEDS: Doxycycline 100 MG CAPSULE PO (20:17)
[2021-06-02 20:24] VITALS: BP 123/73; PULSE 89; RESP 15; O2SAT 98
== END 2021-06-02 20:25 | disposition home or self-care (01) ==
PROVIDERS: Emergency Provider Emergency Medicine
DX: L03.113 Cellulitis of right upper limb (principal); F17.210 Nicotine dependence, cigarettes, uncomplicated
CPT/HCPCS: 10060; 73110; 99282

== ENCOUNTER 2024-09-15 21:38 | Emergency (ER) | payer MEDICAID, SELFPAY ==
[2024-09-15 21:39] VITALS: BP 154/89; PULSE 88; RESP 18; TEMP 36.6; O2SAT 95; BMI 25.2
[2024-09-15] MEDS: Ipratropium/Albuterol Sulfate 3 ML AMPUL.NEB INHALATION (22:15)
[2024-09-15 22:17] VITALS: PULSE 96; RESP 16
[2024-09-15 22:22] VITALS: O2SAT 95
--- NOTE | 2024-09-15 22:30 | RAD_ITS ---
PROCEDURE: CHEST PA AND LATERAL 09/15/2024 REASON FOR EXAM: COUGH TECHNIQUE: Frontal and lateral views of the chest. COMPARISON: 2019 FINDINGS: Hyperinflation with bronchial thickening with features suggesting smoking related airway disease. No pneumothorax or pleural effusion. Stable heart size and mediastinum RAD/Chest PA and Lateral IMPRESSION: Hyperinflation. Bronchial thickening. No localizing infiltrate Reading Location: [id number]
--- NOTE | 2024-09-15 23:06 | EDS_ITS ---
HPI History of Present Illness Chief Complaint: Shortness of Breath Informant: patient Narrative Narrative: Patient is a 44-year-old male with past medical history of anxiety and depression as well as tobacco abuse currently smokes and vapes. He reports roughly 1 week of increased nasal congestion and cough. He states his symptoms of cough and shortness of breath seem to be worsening and he is concerned he may have developed a infection such as pneumonia. He denies any fevers chills or known sick contacts but with his report of worsening symptoms comes in for evaluation [facility] Medical History Acute biliary pancreatitis Home Medications Medication Instructions Recorded Last Taken Type doxycycline monohydrate 100 mg 100 mg PO BID #10 CAPSU LES 06/02/21 Unknown Rx capsule azelastine 137 mcg (0.1 %) nasal 2 spray intranasal BI D #30 mL 09/15/24 Unknown Rx spray azithromycin 250 mg tablet See Rx Instructions PO .COM PLEX #6 09/15/24 Unknown Rx (Zithromax Z-William) tabs hydrocodone-homatropine 5 mg-1.5 5 ml PO 4X/DAY PRN [facility] 7 days 09/15/24 Unknown Rx mg/5 mL (5 mL) oral syrup (Hycodan) #140 mL prednisone 20 mg tablet 40 mg (2 x 20 mg) PO DAILY 5 days 09/15/24 Unknown Rx #10 tabs Allergy/AdvReac Type Severity Reaction Status Date / Time adhesive Allergy Rash Verified 04/25/21 16:29 codeine Allergy Rash Verified 04/25/21 16:29 ketorolac tromethamine (From Allergy Rash Verified 04/25/21 16:29 Toradol) shellfish derived Allergy Anaphylaxis Verified 04/25/21 16:29 tramadol Allergy Rash Verified 04/25/21 16:29 amantadine AdvReac Rash Verified 04/25/21 16:29 Family History no significant family his Surgical History History of appendectomy History of cholecystectomy Social History household members: none Smoking Status: Current every day smoker tobacco type: cigarettes and e- cigarettes substance use type: does not use ROS ROS ED Constitutional Constitutional ED: Denies chills or fever(s) Eyes Eyes: Denies change in vision ENT ENT ED: Reports rhinorrhea and sore throat Cardiovascular Cardiovascular: Denies chest pain Respiratory/Chest Respiratory/Chest: Reports cough and dyspnea Gastrointestinal Gastrointestinal: Denies abdominal pain, diarrhea, nausea or vomiting Genitourinary Genitourinary ED: Denies dysuria Musculoskeletal Musculoskeletal: Denies back pain or myalgias Integumentary Denies rash Neurologic Neurologic: Denies headache(s) Psychiatric Psychiatric: Reports anxiety and depression Hematologic/Lymphatic Hematologic/Lymphatic: Denies easy bleeding or easy bruising Allergic/Immunologic Allergic/Immunologic ED: Denies mouth swelling or tongue swelling EXAM Physical Exam Const Vital Signs: 09/15/24 21:39 09/15/24 22:17 09/15/24 22:22 Temperature 97.9 F Temperature Source Temporal Pulse Rate 88 96 Respiratory Rate 18 16 Respiratory Effort Normal Respiratory Depth Normal Respiratory Pattern Normal Normal Blood Pressure 154/89 H Blood Pressure Mean 110 Pulse Ox 95 Oxygen Delivery Method Room Air Room Air Positive well nourished and well developed General Appearance ED: well developed; Negative for pallor HEENT HEENT Narrative: Nasal mucosa is hyperemic and boggy with enlarged inferior nasal turbinate Bilateral TMs are retracted but show no secondary findings to suggest infection There is cobblestoning noted in the posterior pharynx without airway edema or compromise Eyes PERRL and EOMs intact bilaterally General Eye ED: Negative for scleral icterus Neck supple and no JVD Resp normal respiratory effort Resp Narrative: Breath sounds are diminished throughout with faint expiratory wheeze in the bilateral lower lobes but no nasal flaring retractions tachypnea or accessory muscle use Cardio regular rate and regular rhythm Extremity normal to inspection Extremity Narrative: No asymmetric edema no pitting edema negative Homans' sign bilaterally Neuro oriented x3, CN's II-XII intact bilaterally and no sensory deficits noted Sensorium / Orientation: alert Motor Exam: strength 5/5 throughout Psych mental status grossly normal Skin no rashes or lesions noted General Skin Exam: Negative for jaundice or pallor MDM MDM MDM Narrative Medical decision making narrative: Patient arrived to the ER mildly hypertensive otherwise with stable vitals. He reported roughly 1 week of congestion cough and shortness of breath. Symptoms are most consistent with viral infection such as COVID influenza or RSV. Patient however could have a lung pathology such as pneumonia or pneumothorax. We discussed viral testing but as he is not hypoxic or in respiratory distress this would not change treatment options and therefore he does not want a viral swab at this time. Chest x-ray was obtained which revealed no acute lung pathology. He was given a DuoNeb treatment in the ER and after receiving this did have improvement of his breath sounds and reported feeling better. On reevaluation he remains in no acute distress and is satting in the mid to high 90s on room air. Therefore at this time as patient is not hypoxic or in respiratory distress he does not have acute lung pathology such as pneumonia or pneumothorax there is no need for further evaluation he is otherwise safe for discharge with symptomatic care. History & Record Review Discussion w/independent historian: Patient Radiography Diagnostic Testin view chest x-ray as interpreted by the emergency medicine physician reveals no acute infiltrate pneumothorax or pleural effusion or widening of the mediastinum Discharge Plan Triage Chief Complaint: Shortness of Breath ED Provider: Geronimo Fleming Dx/Rx/DC Orders Clinical Impression: Viral upper respiratory tract infection with cough, Anxiety and depression, Tobacco abuse Instructions: ED URI, Viral W/ Wheezing (Adult) Prescriptions: New azithromycin [Zithromax Z-William] 250 mg tablet See Rx Instructions .ROUTE .COMPLEX Qty: 6 0RF Rx Instructions: For 250 mg dose pack: take 500 mg today (day 1), then 250 mg for 4 days (days 2-5) prednisone 20 mg tablet 40 mg PO DAILY 5 Days Qty: 10 0RF azelastine 137 mcg (0.1 %) spray,non-aerosol 2 spray intranasal BID Qty: 30 0RF Rx Instructions: administer into each nostril hydrocodone-homatropine [Hycodan] 5-1.5 mg/5 mL (5 mL) syrup 5 ml PO 4X/DAY PRN (Reason: cough) 7 Days Qty: 140 0RF No Action doxycycline monohydrate 100 MG capsule 100 mg PO BID Qty: 10 0RF Primary Care Provider: Care Physician,No Primary Referrals: Antoni Seymour MD [Med Staff - Active Staff] - Care Physician,No Primary [Primary Care Provider] - Activity Restrictions/Additional Instructions: Please take the prescribed medication as directed and use your inhaler to help with shortness of breath and cough. Return to the ER should you have any further concerns Print Language: Malagasy Disposition Disposition: Home, Self Care
[2024-09-15] MEDS: predniSONE 20 MG Tablet 60 MG PO (23:52)
[2024-09-15] MEDS: Albuterol Sulfate 8 gm Inhaler (60 puffs) 2 PUFF INHALATION (23:52)
[2024-09-16 00:01] VITALS: BP 111/82; PULSE 88; RESP 22; TEMP 36.2; O2SAT 99
== END 2024-09-16 00:02 | disposition home or self-care (01) ==
PROVIDERS: Emergency Provider Emergency Medicine; Visit Provider Emergency Medicine
DX: J06.9 Acute upper respiratory infection, unspecified (principal); F32.A Depression, unspecified; F17.210 Nicotine dependence, cigarettes, uncomplicated; F17.290 Nicotine dependence, other tobacco product, uncomplicated; F41.9 Anxiety disorder, unspecified; Z79.899 Other long term (current) drug therapy
CPT/HCPCS: 71046; 94640; 99282